=== PATIENT | female | born 2000 | race Hispanic/Latino ===

== ENCOUNTER 2018-03-23 17:27 | Emergency (ER) | payer BC, OTHER ==
--- NOTE | 2018-03-23 17:54 | EKG ---
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
--- NOTE | 2018-03-23 20:41 | ER ---
Nurse's Notes [facility] Name: Kathleen Saunders Age: 17 yrs Sex: Female : 2000 Arrival Date: 03/23/2018 Time: 17:31 Bed 30 Private MD: Diagnosis: Chest wall pain Presentation: 03/23 17:37 Presenting complaint: Patient states: i have chest pain that started an hour, feels hj like pressure; no radiating pain; denies SOB;. Transition of care: patient was not received from another setting of care. Onset of symptoms was March 23, 2018. Initial Sepsis Screen: Does the patient meet any 2 criteria? No. Patient's initial sepsis screen is negative. Does the patient have a suspected source of infection? No. Patient's initial sepsis screen is negative. Care prior to arrival: None. 17:37 Method Of Arrival: Ambulatory 17:37 Acuity: RASHARD 3 hj Triage Assessment: 17:38 General: Appears in no apparent distress. uncomfortable, Behavior is calm, cooperative, hj appropriate for age. Pain: Complains of pain in chest Pain currently is 8 out of 10 on a pain scale. Cardiovascular: Capillary refill < 3 seconds Patient's skin is warm and dry. 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 - Social history:: Smoking status: Patient/guardian denies using tobacco, never smoked. Screenin:00 Abuse screen: Denies threats or abuse. Nutritional screening: No deficits noted. tl3 Tuberculosis screening: No symptoms or risk factors identified. Fall Risk None identified. Assessment: 17:40 Pain: Pain does not radiate. Pain began 4 hours ago. hj 18:00 General: Appears in no apparent distress. comfortable, well groomed, well developed, tl3 well nourished. 18:00 Pain: Pain does not radiate. Pain began 4 hours ago. Neuro: Level of Consciousness is tl3 awake, alert, obeys commands. Cardiovascular: Heart tones S1 S2 present. Respiratory: Airway is patent Trachea midline Respiratory effort is even, unlabored, Respiratory pattern is regular, symmetrical. GI: No signs and/or symptoms were reported involving the gastrointestinal system. : No signs and/or symptoms were reported regarding the genitourinary system. EENT: No signs and/or symptoms were reported regarding the EENT system. Derm: No signs and/or symptoms reported regarding the dermatologic system. Musculoskeletal: No signs and/or symptoms reported regarding the musculoskeletal system. 18:00 Reassessment: pt has reproducible pain to mid chest area, helped her sister pack and tl3 move yesterday. 18:00 Reassessment: Patient appears in no apparent distress at this time. No changes from tl3 previously documented assessment. Patient and/or family updated on plan of care and expected duration. Pain level reassessed. Patient is alert, oriented x 3, equal unlabored respirations, skin warm/dry/pink. 20:29 Reassessment: Patient appears in no apparent distress at this time. No changes from tl3 previously documented assessment. Patient and/or family updated on plan of care and expected duration. Pain level reassessed. Patient is alert, oriented x 3, equal unlabored respirations, skin warm/dry/pink. 21:12 Reassessment: Patient appears in no apparent distress at this time. No changes from tl3 previously documented assessment. Patient and/or family updated on plan of care and expected duration. Pain level reassessed. Patient is alert, oriented x 3, equal unlabored respirations, skin warm/dry/pink. Vital Signs: 17:38 BP 122 / 77; Pulse 100; Resp 18; Temp 99.2(TE); Pulse Ox 100% on R/A; Weight 92.99 kg; Height 5 ft. 3 in. (160.02 cm); Pain 6/10; 18:00 BP 124 / 92; Pulse 93; Resp 18; Pulse Ox 100% ; tl3 21:12 BP 113 / 66; Pulse 85; Resp 18; Pulse Ox 100% on R/A; tl3 17:38 Body Mass Index 36.32 (92.99 kg, 160.02 cm) ED Course: 17:31 Patient arrived in ED. mr 17:38 Triage completed. hj 17:38 Arm band placed on right wrist. 17:40 court recording monitor on. Pulse ox on. NIBP on. hj 17:40 Patient maintains SpO2 saturation greater than 95% on room air. hj 18:00 Patient has correct armband on for positive identification. Bed in low position. Call tl3 light in reach. Side rails up X 1. Adult w/ patient. 18:00 No provider procedures requiring assistance completed. Patient did not have IV access tl3 during this emergency room visit. 18:33 Erick Cerrato PA is PHCP. jr8 18:33 Usman Cherry MD is Attending Physician. jr8 19:16 Shaina Pulido, RN is Primary Nurse. tl3 19:32 Patient moved to radiology via wheelchair. kc2 19:42 X-ray completed. Patient tolerated procedure well. Patient moved back from radiology. kc2 19:46 XRAY Chest Pa And Lat (2 Views) In Process Unspecified. EDMS Administered Medications: No medications were administered Outcome: 20:41 Discharge ordered by . jr8 21:12 Discharged to home ambulatory. tl3 21:12 Condition: good 21:12 Discharge instructions given to patient, Instructed on discharge instructions, follow up and referral plans. medication usage, Demonstrated understanding of instructions, follow-up care, medications, Prescriptions given X 1. 21:14 Patient left the ED. tl3 Signatures: Dispatcher [employer] EDMS Alexis Annie mr Erick Cerrato PA PA jr8 Trung Tompkins, RN RN Saima Cardoza [facility] Shaina Pulido, RN RN tl3 Corrections: (The following items were deleted from the chart) 17:41 17:38 Pulse 100bpm; Resp 18bpm; Pulse Ox 100% RA; Temp 99.2F Temporal; 92.99 kg; Height 5 ft. 3 in.; BMI: 36.3; Pain 6/10; hj 20:29 20:27 Reassessment: pt has reproducible pain to mid chest area, helped her sister pack tl3 and move yesterday tl3
--- NOTE | 2018-03-23 20:41 | EDPHYS ---
Physician Documentation [facility] Name: Kathleen Saunders Age: 17 yrs Sex: Female : 2000 Arrival Date: 03/23/2018 Time: 17:31 Bed 30 Private MD: ED Physician Usman Cherry HPI: 03/23 19:01 This 17 yrs old Female presents to ER via Ambulatory with complaints of Chest jr8 Pain. 19:01 The patient or guardian reports chest pain that is located primarily in the substernal jr8 area. The pain does not radiate. Associated signs and symptoms: The patient has no apparent associated signs or symptoms. The chest pain is described as sharp. Duration: The patient or guardian reports multiple episodes. Modifying factors: The symptoms are alleviated by nothing. the symptoms are aggravated by cough, deep breath, movement. Severity of pain: At its worst the pain was mild in the emergency department the pain is unchanged. The patient has not experienced similar symptoms in the past. The patient has not recently seen a physician. Stated that she helped her sister move yesterday. Today while at rest had upper sternal pain. Pain with cough, breath, and movement. Denies fevers or radiation of pain . 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 - Social history:: Smoking status: Patient/guardian denies using tobacco, never smoked. ROS: 19:01 Eyes: Negative for injury, pain, redness, and discharge, ENT: Negative for injury, jr8 pain, and discharge, Neck: Negative for injury, pain, and swelling, Respiratory: Negative for shortness of breath, cough, wheezing, and pleuritic chest pain, Abdomen/GI: Negative for abdominal pain, nausea, vomiting, diarrhea, and constipation, Back: Negative for injury and pain, MS/Extremity: Negative for injury and deformity, Skin: Negative for injury, rash, and discoloration, Neuro: Negative for headache, weakness, numbness, tingling, and seizure. 19:01 Cardiovascular: Positive for chest pain, with cough, with movement, Negative for edema, orthopnea, palpitations, paroxysmal nocturnal dyspnea. Exam: 19:01 Cardiovascular: Regular rate and rhythm with a normal S1 and S2. No gallops, murmurs, jr8 or rubs. Normal PMI, no JVD. No pulse deficits. Respiratory: Lungs have equal breath sounds bilaterally, clear to auscultation and percussion. No rales, rhonchi or wheezes noted. No increased work of breathing, no retractions or nasal flaring. Abdomen/GI: Soft, non-tender, with normal bowel sounds. No distension or tympany. No guarding or rebound. No evidence of tenderness throughout. Back: No spinal tenderness. No costovertebral tenderness. Full range of motion. Skin: Warm, dry with normal turgor. Normal color with no rashes, no lesions, and no evidence of cellulitis. MS/ Extremity: Pulses equal, no cyanosis. Neurovascular intact. Full, normal range of motion. Neuro: Awake and alert, GCS 15, oriented to person, place, time, and situation. Cranial nerves II-XII grossly intact. Motor strength 5/5 in all extremities. Sensory grossly intact. Cerebellar exam normal. Normal gait. 19:01 Chest/axilla: Inspection: normal, Palpation: tenderness, that is mild, of the anterior aspect of right upper chest, anterior aspect of left upper chest and mid-sternal area. Vital Signs: 17:38 BP 122 / 77; Pulse 100; Resp 18; Temp 99.2(TE); Pulse Ox 100% on R/A; Weight 92.99 kg; hj Height 5 ft. 3 in. (160.02 cm); Pain 6/10; 18:00 BP 124 / 92; Pulse 93; Resp 18; Pulse Ox 100% ; tl3 21:12 BP 113 / 66; Pulse 85; Resp 18; Pulse Ox 100% on R/A; tl3 17:38 Body Mass Index 36.32 (92.99 kg, 160.02 cm) hj MDM: 18:33 Patient medically screened. jr8 20:40 Data reviewed: vital signs, nurses notes, EKG, radiologic studies, plain films, and as jr8 a result, I will discharge patient. Data interpreted: Pulse oximetry: on room air is 100 %. Interpretation: normal. Counseling: I had a detailed discussion with the patient and/or guardian regarding: the historical points, exam findings, and any diagnostic results supporting the discharge/admit diagnosis, radiology results, the need for outpatient follow up, a family practitioner, to return to the emergency department if symptoms worsen or persist or if there are any questions or concerns that arise at home. 03/23 18:47 Order name: XRAY Chest Pa And Lat (2 Views); Complete Time: 22:30 jr8 03/23 17:42 Order name: EKG; Complete Time: 17:42 mario Administered Medications: No medications were administered Disposition: 03/24 19:52 Co-signature as Attending Physician, Usman Cherry MD. miriam Disposition: 03/23/18 20:41 Discharged to Home. Impression: Chest wall pain. - Condition is Stable. - Discharge Instructions: Chest Wall Pain, Costochondritis. - Prescriptions for Ibuprofen 800 mg Oral Tablet - take 1 tablet by ORAL route every 12 hours As needed take with food; 20 tablet. - Medication Reconciliation Form, Thank You Letter, Antibiotic Education, Prescription Opioid Use form. - Follow up: Private Physician; When: 2 - 3 days; Reason: Recheck today's complaints, Continuance of care, Re-evaluation by your physician. - Problem is new. - Symptoms have improved. Signatures: Dispatcher [employer] EDMS Erick Cerrato PA PA jr8 Trung Tompkins RN RN hj Starr, Gregory, MD MD Shaina Pulido, RN RN tl3 Corrections: (The following items were deleted from the chart) 03/23 21:14 20:41 03/23/2018 20:41 Discharged to Home. Impression: Chest wall pain. Condition is tl3 Stable. Forms are Medication Reconciliation Form, Thank You Letter, Antibiotic Education, Prescription Opioid Use. Follow up: Private Physician; When: 2 - 3 days; Reason: Recheck today's complaints, Continuance of care, Re-evaluation by your physician. Problem is new. Symptoms have improved. jr8
--- NOTE | 2018-03-23 21:07 | RAD REPORT ---
EXAM DESCRIPTION: RAD - Chest Pa And Lat (2 Views) - 03/23/2018 7:49 pm CLINICAL HISTORY: Chest pain COMPARISON: September 2015 TECHNIQUE: PA and lateral views of the chest were obtained. FINDINGS: The lungs are clear of failure, infiltrate or mass. Lung markings are prominent but not cl early different from the comparison. Heart size is normal and central vasculature is within normal limits. No pleural effusion or pneumothorax seen. No acute bony finding noted. No aortic abnormali ty. IMPRESSION: No acute cardiopulmonary process. Chest is similar to the September 2015 study.
[2018-03-23 22:21] VITALS: TEMP 99.2; O2SAT 100
[2018-03-23 22:23] VITALS: BP 113/66
== END 2018-03-23 21:14 | disposition home or self-care (01) ==
LOC: ER 17:27
DX: R07.89 Other chest pain (principal)
CPT/HCPCS: 71046; 93005; 99284

== ENCOUNTER 2025-09-03 00:05 | Emergency (ER) | payer BC, SELFPAY ==
--- OUTSIDE RECORDS SUMMARY | 2025-09-03 00:17 | XMS REPORT | Continuity of Care Document ---
Author Name Unknown Address [address] [facility] [address] [place] [address] [facility] [place] Address [address] [facility]. [address] [place] [address] Care Team Providers Care Senior Asic Engineer Name Role Phone Luz Contreras PA-C Primary Care Physician [phone] ELADIA BRASWELL Attending Clinician Unavailable ELADIA BRASWELL Attending Clinician Unavailable Nurse, [facility] Attending Clinician Unavailable Coty Cedillo MD Attending Clinician + [phone] Luz Contreras PA-C Attending Clinician [phone] Eladia Braswell MD Attending Clinician [phone] LUZ CONTRERAS Attending Clinician Unavailable Doctor Unassigned, [place] Attending Clinician U PARIS Mcghee Attending Clinician Unavailable Lab, Ang - Db Attending Clinician Unavailable Paris Fry Attending Clinician [phone] Nurse, [facility] Attending Clinician Un available RADAMES MORRIS Attending Clinician Unavailable RADAMES MORRIS Attending Clinician Unavailable Radames Morris MD Attending Clinician [phone] FIOR ANDERSON Attending Clinician Unavailable Nurse, [facility] Attending Clinician Unavailable Fior Anderson MD Attending Clinician [phone] Doctor Unassigned, [place] Attending Clinician U MARITZA Ledezma Attending Clinician Unavailable Nurse, [facility] Attending Clinician Un available PETER VICTOR Attending Clinician Unavailable Peter Parks Attending Clinician [phone] PENELOPE HINES Attending Clinician Unavailable Froylan Delgado MD Attending Clinician [phone] Penelope Hines MD Attending Clinician [phone] Maritza Gutierres Attending Clinician [phone], [facility] Attending Clinician Unavailable Pob, [facility] Main Attending Clinician Unavailjanell Velasco MD, Ganga Chen Attending Clinician [phone] Akira Garland CRNA Attending Clinician [phone] Ingrid Cruz NP Attending Clinician [phone] Ultrasound, [facility] Attending Clinician Unavaila Adia Cordero MD Attending Clinician + ADIA NARVAEZ Attending Clinician UnaSeema Akers MD Attending Clinician [phone] SEEMA MCGRAW Attending Clinician Unavailable SEEMA MCGRAW Attending Clinician Unavailable Marion Campos Attending Clinician [phone] RADAMES MORRIS Admitting Clinician Unavailable ELADIA BRASWELL Admitting Clinician Unavailable Eladia Braswell MD Admitting Clinician [phone] Fior Anderson MD Admitting Clinician [phone] FIOR ANDERSON Admitting Clinician Unavailable Payers Payer Name Policy Type Policy Number Effective Date Expirati on Date Source BC[employer] [facility] - OUT OF STATE [id number] 2024 00:00:00 [employer] [id number] 2024 00:00:00 [facility] [id number] 2016 00:00:00 2023 00:00:00 Problems Condition Name Condition Details Condition Category Status Onset Date Resolution Date Last Treatment Date Treating Clinician Comments Source Type 2 diabetes mellitus without complicati on, without long-term current use of insulin Type 2 diabetes mellitus without complicati on, without long-term current use of insulin Disease Active 4-17 00:00: 00 [facility] Chronic GERD Chronic GERD Disease Active 3-24 00:00: 00 [facility] Hyperchole sterolemia Hyperchole sterolemia Disease Active 3-24 00:00: 00 [facility] Depression with anxiety Depression with anxiety Disease Active 7-14 00:00: 00 [facility] Obesity (BMI 30-39.9) Obesity (BMI 30-39.9) Disease Active 6-02 00:00: 00 [facility] Anemia in , delivered, current hospitaliz ation Anemia in , delivered, current hospitaliz ation Disease Active 4-14 00:00: 00 [facility] 26 weeks gestation of 26 weeks gestation of Disease Active 1-17 00:00: 00 [facility] Pre-diabet es Pre-diabet es Disease Resolve d 3-24 00:00: 00 2025-03-03 00:00:00 2025-03-03 14:33:56 [facility] Anemia in , delivered, current hospitaliz ation Anemia in , delivered, current hospitaliz ation Disease Resolve d 4-14 00:00: 00 2023-04-18 00:00:00 2023-04-18 11:06:13 [facility] Diet controlled gestationa l diabetes mellitus (GDM) in third trimester Diet controlled gestationa l diabetes mellitus (GDM) in third trimester Disease Resolve d 4-12 00:00: 00 2023-04-18 00:00:00 2023-04-18 11:06:12 [facility] Encounter for induction of labor Encounter for induction of labor Disease Resolve d 4-12 00:00: 00 2023-04-18 00:00:00 2023-04-18 11:06:02 [facility] Morbid obesity with body mass index of 40.0-49.9 Morbid obesity with body mass index of 40.0-49.9 Disease Resolve d 2023-0 3-15 00:00: 00 2023-04-18 00:00:00 2023-04-18 11:06:04 [facility] Diet controlled gestationa l diabetes mellitus (GDM), antepartum Diet controlled gestationa l diabetes mellitus (GDM), antepartum Disease Resolve d 2022-0 2-01 00:00: 00 2023-04-18 00:00:00 2023-04-18 11:06:10 [facility] 39 weeks gestation of 39 weeks gestation of Disease Resolve d 2022-0 1-17 00:00: 00 2023-04-18 00:00:00 2023-04-18 11:06:13 [facility] Supervisio n of high-risk with insufficie nt care in second trimester Supervisio n of high-risk with insufficie nt care in second trimester Disease Resolve d 2022-0 1-17 00:00: 00 2023-04-18 00:00:00 2023-04-18 11:06:07 [facility] Obesity affecting in second trimester Obesity affecting in second trimester Disease Resolve d 2022-0 1-17 00:00: 00 2023-04-18 00:00:00 2023-04-18 11:06:06 [facility] Liveborn infant, of schultz , born in hospital by vaginal delivery Liveborn , of schultz , born in hospital by vaginal delivery Disease Resolve d 2022-0 4-13 00:00: 00 2023-03-19 00:00:00 2023-03-19 15:32:38 [facility] Allergies, Adverse Reactions, Alerts Allergy Name Allergy Type Status Severity Reaction(s) Onset Date Inactive Date Treating Clinician Comments Source NO KNOWN ALLERGIE S Drug Class Active [facility] Social History Social Habit Start Date Stop Date Quantity Comments Source ASSERTION 2022-06-12 00:00:00 Not [facility] Gender identity [facility] Alcoholic beverage intake 2025-08-18 00:00:00 2025-08-18 00:00:00 Ex-drinker (finding) [facility] History of Social function 2025-04-28 00:00:00 2025-04-28 00:00:00 [facility] Alcohol intake 2024-01-02 00:00:00 2024-01-02 00:00:00 Ex-drinker (finding) [facility] Exposure to SARS-CoV-2 (event) 2023-05-06 00:00:00 2023-05-16 09:53:00 Not sure [facility] Tobacco use and exposure 2022-12-03 00:00:00 2022-12-03 00:00:00 Smokeless tobacco non-user [facility] Sex assigned at 2000 00:00:00 2000 00:00:00 [facility] Smoking Status Start Date Stop Date Source Tobacco smoking consumption unknown [facility] Never smoked tobacco [facility] Medications Ordered Medication Name Filled Medication Name Start Date Stop Date Current Medication? Ordering Clinician Indication Dosage Frequency Signature (SIG) Comments Components Source medroxyPROG ESTERone (DEPO-PROVE RA) syringe 150 mg 2024-11 16:00: 00 08-18 15:05 :00 No [id number] 150mg 150 mg, Intramuscu lar, ONCE, 1 dose, On Gabriela 08/18/25 at 1100, Routine [facility] medroxyPROG ESTERone (DEPO-PROVE RA) syringe 150 mg 05-26 16:30: 00 05-26 15:50 :00 No [id number] 150mg 150 mg, Intramuscu lar, ONCE, 1 dose, On Gabriela 05/26/25 at 1130, Routine [facility] metformin ER 500 mg 24 hr tablet 04-29 00:00: 00 Yes [id number] 500mg Take 1 tablet by mouth daily with breakfast. [facility] orlistat 120 mg capsule 04-28 00:00: 00 Yes [id number] 104 120mg Take 1 capsule by mouth in the morning and 1 capsule at noon and 1 capsule in the evening. Take with meals. [facility] omeprazole 20 mg capsule 04-28 00:00: 00 Yes [id number] 20mg Take 1 capsule by mouth in the morning. [facility] azithromyci n 500 mg tablet 18 00:00: 00 04-06 00:00 :00 No [id number] 1000mg Take 2 tablets by mouth in the morning. [facility] medroxyPROG ESTERone (DEPO-PROVE RA) syringe 150 mg 03-03 20:45: 00 03-03 19:46 :00 No [id number] 150mg 150 mg, Intramuscu lar, ONCE, 1 dose, On Fri03/03/25 at 1545, Routine [facility] metFORMIN 500 mg tablet 02-10 00:00: 00 04-29 00:00 :00 No [id number] 500mg Take 1 tablet by mouth in the morning and 1 tablet in the evening. Take with meals. [facility] omeprazole 20 mg capsule 02-08 00:00: 00 04-28 00:00 :00 No TAKE ONE (1) CAPSULE(S) BY MOUTH ONCE A DAY IN THE MORNING. [facility] SERTraline (ZOLOFT) 50 mg tablet 3-24 00:00: 00 04-28 00:00 :00 No [id number] 50mg Take 1 tablet by mouth at bedtime. [facility] traZODone 50 mg tablet 3-24 00:00: 00 04-28 00:00 :00 No [id number] 50mg Take 1 tablet by mouth at bedtime as needed for Insomnia. [facility] omeprazole (PRILOSEC OTC) 20 mg tablet 3-24 00:00: 00 04-28 00:00 :00 No [id number] 20mg Take 1 tablet by mouth in the morning. [facility] medroxyPROG ESTERone (DEPO-PROVE RA) syringe 150 mg -17 17:00: 00 12-03 16:24 :00 No [id number] 150mg 150 mg, Intramuscu lar, ONCE, 1 dose, On Fri12/03/24 at 1100, Routine [facility] iopamidol (ISOVUE 370-500 mL) injection 80 mL 2023-11 07:30: 00 09-29 07:30 :00 No [id number] 80mL 80 mL, Intravenou s, ONCE, 1 dose, On Fri09/29/24 at 0130, Routine [facility] ketorolac (TORADOL) injection 30 mg 2023-11 06:30: 00 09-29 05:35 :00 No 30mg 30 mg, Slow IV Push, ONCE, 1 dose, On Fri09/29/24 at 0030, Routine [facility] ondansetron (ZOFRAN (PF)) injection 4 mg 2023-11 05:45: 00 09-29 05:36 :00 No 4mg 4 mg, Slow IV Push, ONCE, 1 dose, On Fri09/28/24 at 2345, Administer over 2-5 Minutes, 2 mL [facility] tablet 2023-11 00:00: 00 02-07 00:00 :00 No [id number] 10mg Take 1 tablet by mouth every 6 (six) hours as needed for Pain (scale 7-10). [facility] ondansetron (ZOFRAN) 4 mg tablet 2023-11 00:00: 00 02-07 00:00 :00 No [id number] 4mg Take 1 tablet by mouth every 8 (eight) hours as needed for Nausea and Vomiting (N/V). [facility] medroxyPROG ESTERone (DEPO-PROVE RA) syringe 150 mg 2023-11 22:45: 00 09-10 21:56 :00 No [id number] 150mg 150 mg, Intramuscu lar, ONCE, 1 dose, On Fri09/10/24 at 1745, Routine [facility] medroxyPROG ESTERone (DEPO-PROVE RA) syringe 150 mg 06-21 20:15: 00 06-21 19:24 :00 No [id number] 150mg 150 mg, Intramuscu lar, ONCE, 1 dose, On Fri06/21/24 at 1515, Routine [facility] medroxyPROG ESTERone (DEPO-PROVE RA) injection 150 mg 03-26 16:45: 00 03-26 15:47 :00 No [id number] 150mg 150 mg, Intramuscu lar, ONCE, 1 dose, On Fri03/26/24 at 1145, Routine [facility] phentermine 37.5 mg tablet 03-16 00:00: 00 03-26 00:00 :00 No 37.5mg Take 1 tablet by mouth in the morning. [facility] medroxyPROG ESTERone (DEPO-PROVE RA) injection 150 mg -16 19:30: 00 01-02 19:22 :00 No [id number] [facility] PNV no.95/desiree us fum/folic ac ( ORAL) -16 13:17: 12 02-07 00:00 :00 No Take by mouth. [facility] semaglutide (OZEMPIC) 0.25 mg or 0.5 mg(2 mg/1.5 mL) PnIj -16 13:17: 12 02-07 00:00 :00 No inject under the skin. [facility] phentermine 37.5 mg capsule -16 13:17: 12 02-07 00:00 :00 No 37.5mg Take 1 capsule by mouth every morning. [facility] medroxyPROG ESTERone (DEPO-PROVE RA) syringe 150 mg 2022-11-15 17:15: 00 10-01 16:15 :00 No [id number] [facility] amox[facility] -clavulanat e (AUGMENTIN) 875-125 mg per tablet 1 tablet 08-10 04:29: 00 08-10 04:33 :00 No 1{tbl} 1 tablet, Oral, ONCE, 1 dose, On 08/09/23 at 2330, SOTERO
Re ason for Anti-Infec tive: Documented Infection< br>Documen huy Infection Site: HEENT
D uration of Therapy: Other (see Comments) [facility] acetaminoph en (TYLENOL) tablet 650 mg 08-10 03:30: 00 08-10 03:34 :00 No 650mg 650 mg, Oral, ONCE, 1 dose, On 08/09/23 at 2230, SOTERO [facility] ketorolac (TORADOL) injection 30 mg 08-10 03:30: 00 08-10 03:34 :00 No 30mg 30 mg, Intramuscu lar, ONCE, 1 dose, On 08/09/23 at 2230, SOTERO [facility] amoxicillin -clavulanat e 875-125 mg per tablet 08-09 00:00: 00 08-20 04:59 :00 No [id number] 1{tbl} Take 1 tablet by mouth in the morning and 1 tablet in the evening. Do all this for 10 days. [facility] cetirizine 10 mg tablet 08-09 00:00: 00 08-20 04:59 :00 No [id number] 10mg Take 1 tablet by mouth in the morning for 10 days. [facility] TRIAMCINOLO NE ACETONIDE-H YDROQUINONE -TRETINOIN 0.025-6-0.0 5 % TOPICAL CREAM 07-30 00:00: 00 02-07 00:00 :00 No [id number] Apply to area(s) at bedtime. [facility] FLUoxetine 20 mg tablet 07-15 00:00: 00 02-07 00:00 :00 No [id number] 20mg Take 1 tablet by mouth in the morning. [facility] medroxyPROG ESTERone (DEPO-PROVE RA) syringe 150 mg 07-11 18:30: 00 07-11 17:34 :00 No [id number] 150mg [facility] medroxyPROG ESTERone (DEPO-PROVE RA) syringe 150 mg 04-18 17:45: 00 04-18 16:49 :00 No [id number] 150mg [facility] FLUoxetine 10 mg capsule 04-18 00:00: 00 07-15 00:00 :00 No [id number] 10mg Take 1 capsule by mouth in the morning. [facility] PNV no.95/desiree us fum/folic ac ( ORAL) 03-19 15:33: 58 Yes Take by mouth. [facility] PNV no.95/desiree us fum/folic ac ( ORAL) 02-28 22:45: 22 Yes Take by mouth. [facility] vitamin w/FA tablet 02-28 00:00: 00 03-19 00:00 :00 No [id number] 102 1{tbl} Take 1 tablet by mouth in the morning. [facility] ibuprofen 600 mg tablet 02-28 00:00: 00 03-19 00:00 :00 No [id number] 102 600mg Take 1 tablet by mouth every 6 (six) hours as needed (Pain). Take with food or milk. [facility] HYDROcodone -acetaminop hen (NORCO 5) 5-325 mg tablet 1 tablet 02-27 23:49: 21 Yes 1{tbl} 1 tablet, Oral, Q6HPRN, Starting on Fri02/27/23 at 1849, Until Discontinu ed, Routine, Pain (scale 7-10) [facility] ibuprofen (IBU) tablet 600 mg 02-27 23:49: 21 Yes 600mg 600 mg, Oral, Q6HPRN, Starting on Fri02/27/23 at 1849, Until Discontinu ed, Routine, Pain (scale 4-6) [facility] acetaminoph en (TYLENOL) tablet 650 mg 02-27 23:49: 21 Yes 650mg 650 mg, Oral, Q6HPRN, Starting on Fri02/27/23 at 184, Until Discontinu ed, Routine, Pain (scale 1-3) [facility] diphenhydrA MINE (BENADRYL) tablet 25 mg 02-27 23:49: 21 Yes 25mg 25 mg, Oral, Q6HPRN, Starting on Fri02/27/23 at 184, Until Discontinu ed, Routine, Sleep, Itching [facility] ondansetron (ZOFRAN (PF)) injection 4 mg 02-27 23:49: 21 Yes 4mg 4 mg, Slow IV Push, Q8HPRN, Starting on Fri02/27/23 at 1848, Until Discontinu ed, Routine, Nausea and Vomiting (N/V) [facility] simethicone (GAS RELIEF (SIMETHICON E)) chewable tablet 160 mg 02-27 23:49: 21 Yes 160mg 160 mg, Oral, PC+HSPRN, Starting on Fri02/27/23 at 184, Until Discontinu ed, Routine, Gas [facility] docusate (COLACE) capsule 200 mg 02-27 23:49: 21 Yes 200mg 200 mg, Oral, QDAILYPRN, Starting on Fri02/27/23 at 184, Until Discontinu ed, Routine, Constipati on [facility] magnesium hydroxide (MILK OF MAGNESIA) 400 mg/5 mL suspension 30 mL 02-27 23:49: 21 Yes 30mL 30 mL, Oral, QDAILYPRN, Starting on Fri02/27/23 at 184, Until Discontinu ed, Routine, Constipati on [facility] benzocaine- menthol (DERMOPLAST ) 20-0.5 % topical spray 02-27 23:49: 20 Yes Topical, PRN, Starting on Fri02/27/23 at 184, Until Discontinu ed, Routine, Perineum discomfort [facility] PIB fentaNYL-ro pivacaine 2 mcg/mL-0.1 % (PF) in NS 200 mL epidural infusion RTU 02-27 15:36: 00 02-28 00:18 :58 No Epidural, ONCE INTRA PROCEDURE, Starting on Gabriela 02/27/23 at 1036, Until Gabriela 02/27/23 at 1918, Routine, Intra-op [facility] lidocaine-e pinephrine (XYLOCAINE W/EPINEPHRI NE) 1.5 %-1:200,000 injection 02-27 15:35: 00 02-28 00:18 :58 No Epidural, ONCE INTRA PROCEDURE, Starting on Gabriela 02/27/23 at 1035, Until Gabriela 02/27/23 at 1918, Routine, Intra-op [facility] lidocaine 1% (XYLOCAINE) 100 mg/10 mL (1 %) injection 02-27 15:32: 00 02-28 00:18 :58 No Infiltrati on, ONCE INTRA PROCEDURE, Starting on Gabriela 02/27/23 at 1032, Until Gabriela 02/27/23 at 191, Routine, Intra-op [facility] PNV no.95/desiree us fum/folic ac ( ORAL) 02-27 10:49: 21 Yes Take by mouth. [facility] lactated ringers IV infusion 1,000 mL 02-26 23:15: 00 02-27 23:50 :32 No 1000mL at 125 mL/hr, 1,000 mL, IV Infusion, CONTINUOUS , Starting on Fri02/26/23 at 1815, Until Fri02/27/23 at 1850, Routine [facility] misoprostol (CYTOTEC) quarter-tab let 25 mcg 02-26 22:15: 00 02-26 21:51 :00 No 25ug 25 mcg, Oral, ONCE, 1 dose, On Fri02/26/23 at 1715, Routine [facility] oxytocin (PITOCIN) 30 units in NS 500 mL IV infusion 02-26 22:00: 22 02-27 23:50 :32 No 2mU/min at 2-40 mL/hr, IV Infusion, TITRATE, Starting on Fri02/26/23 at 1700, Until Gabriela 02/27/23 at 1850, SOTERO [facility] misoprostol (CYTOTEC) quarter-tab let 25 mcg 02-26 21:18: 57 02-27 23:50 :32 No 25ug 25 mcg, Vaginal, Q4HPRN, Starting on Fri02/26/23 at 1618, Until Gabriela 02/27/23 at 1850, Routine, cervical ripening [facility] butorphanol (STADOL) injection 2 mg 02-26 21:18: 57 02-27 14:11 :00 No 2mg 2 mg, IV Push, Q3HPRN, 3 doses, Starting on Fri02/26/23 at 1618, Until Discontinu ed, Routine, Pain [facility] lactated ringers IV infusion 500 mL 02-26 21:18: 56 02-27 23:50 :32 No 500mL at 999 mL/hr, 500 mL, IV Infusion, PRN - SEE INSTRUCTIO NS, Starting on Fri02/26/23 at 1618, Until Gabriela 02/27/23 at 1850, Routine [facility] PNV no.95/desiree us fum/folic ac ( ORAL) 02-20 08:24: 02 Yes Take by mouth. [facility] metroNIDAZO LE (FLAGYL) tablet 500 mg 02-20 04:45: 00 02-20 03:57 :00 No 500mg 500 mg, Oral, ONCE, 1 dose, On Fri02/19/23 at 2345, Routine
Reason for Anti-Infec tive: Documented Infection< br>Documen huy Infection Site: Other
O ther site: vaginal
Duration of Therapy: 7 days [facility] metroNIDAZO LE 500 mg tablet 02-20 00:00: 00 03-19 00:00 :00 No [id number] 500mg Take 1 tablet by mouth every 12 (twelve) hours. [facility] PNV no.95/desiree us fum/folic ac ( ORAL) 02-19 23:22: 19 Yes Take by mouth. [facility] blood sugar diagnostic (ACCU-CHEK GUIDE TEST STRIPS) strip 4- 00:00: 00 02-28 00:00 :00 No Pt to check glucose levels 4 x per day. [facility] ferrous sulfate (IRON, FERROUS SULFATE,) 325 mg (65 mg iron) tablet 02-06 00:00: 00 02-07 00:00 :00 No [id number] 325mg Take 1 tablet by mouth in the morning. [facility] ascorbic acid, vitamin C, 500 mg tablet 02-06 00:00: 00 03-19 00:00 :00 No [id number] 500mg Take 1 tablet by mouth in the morning. [facility] PNV no.95/desiree us fum/folic ac ( ORAL) 3 13:38: 04 Yes Take by mouth. [facility] lancets 33 gauge [place] 3 00:00: 00 02-28 00:00 :00 No Pt to check glucose levels 4 x per day. [facility] blood sugar diagnostic (ACCU-CHEK GUIDE TEST STRIPS) strip 3 00:00: 00 02-14 00:00 :00 No Pt to check glucose levels 4 x per day. [facility] PNV no.95/desiree us fum/folic ac ( ORAL) 2-08 13:01: 11 Yes Take by mouth. [facility] PNV no.95/desiree us fum/folic ac ( ORAL) 2- 09:35: 01 Yes Take by mouth. [facility] Blood-Gluco se Meter (ACCU-CHEK GUIDE GLUCOSE METER) [place] 1- 00:00: 00 02-28 00:00 :00 No Use as directed [facility] ACCU-CHEK SOFTCLIX LANCETS [place] 1- 00:00: 00 02-28 00:00 :00 No USE 1 TO CHECK GLUCOSE 4 TIMES DAILY [facility] Blood-Gluco se Meter (ACCU-CHEK GUIDE GLUCOSE METER) [place] 12-09 00:00: 00 02-28 00:00 :00 No Use as directed [facility] ACCU-CHEK SOFTCLIX LANCETS [place] 12-09 00:00: 00 02-28 00:00 :00 No USE 1 TO CHECK GLUCOSE 4 TIMES DAILY [facility] blood sugar diagnostic (ACCU-CHEK GUIDE TEST STRIPS) strip 12-09 00:00: 00 01-19 00:00 :00 No Pt to check glucose levels 4 x per day. [facility] lancets 33 gauge [place] 12-09 00:00: 00 01-19 00:00 :00 No Pt to check glucose levels 4 x per day. [facility] metroNIDAZO LE (FLAGYL) tablet 500 mg 12-03 00:24: 00 12-03 00:42 :00 No 500mg 500 mg, Oral, ONCE, 1 dose, On Fri12/02/22 at 1830, Routine
Reason for Anti-Infec tive: Documented Infection< br>Documen huy Infection Site: Other
O ther site: vaginal
Duration of Therapy: Other (see Comments) [facility] metroNIDAZO LE (FLAGYL) 500 mg tablet 12-02 00:00: 00 12-25 00:00 :00 No [id number] 500mg Take 1 tablet by mouth every 12 (twelve) hours. [facility] Immunizations Ordered Immunization Name Filled Immunization Name Date Status Comments Source TDAP 2023-01-15 00:00:00 Completed [facility] TDAP 2023-01-15 00:00:00 Completed [facility] TDAP 2023-01-15 00:00:00 Completed [facility] TDAP 2023-01-15 00:00:00 Completed [facility] TDAP 2023-01-15 00:00:00 Completed [facility] TDAP 2023-01-15 00:00:00 Completed [facility] TDAP 2023-01-15 00:00:00 Completed [facility] TDAP 2023-01-15 00:00:00 Completed [facility] TDAP 2023-01-15 00:00:00 Completed [facility] TDAP 2023-01-15 00:00:00 Completed [facility] TDAP 2023-01-15 00:00:00 Completed [facility] TDAP 2023-01-15 00:00:00 Completed [facility] TDAP 2023-01-15 00:00:00 Completed [facility] TDAP 2023-01-15 00:00:00 Completed [facility] TDAP 2023-01-15 00:00:00 Completed [facility] TDAP 2023-01-15 00:00:00 Completed [facility] TDAP 2023-01-15 00:00:00 Completed [facility] TDAP 2023-01-15 00:00:00 Completed [facility] TDAP 2023-01-15 00:00:00 Completed [facility] TDAP 2023-01-15 00:00:00 Completed [facility] TDAP 2023-01-15 00:00:00 Completed [facility] TDAP 2023-01-15 00:00:00 Completed [facility] TDAP 2023-01-15 00:00:00 Completed [facility] TDAP 2023-01-15 00:00:00 Completed [facility] TDAP 2023-01-15 00:00:00 Completed [facility] TDAP 2023-01-15 00:00:00 Completed [facility] TDAP 2023-01-15 00:00:00 Completed [facility] TDAP 2023-01-15 00:00:00 Completed [facility] TDAP 2023-01-15 00:00:00 Completed [facility] TDAP 2023-01-15 00:00:00 Completed [facility] TDAP 2023-01-15 00:00:00 Completed [facility] TDAP 2023-01-15 00:00:00 Completed [facility] TDAP 2023-01-15 00:00:00 Completed [facility] SARS-COV-2 COVID-19 PFIZER VACCINE 2021-05-11 00:00:00 Completed [facility] SARS-COV-2 COVID-19 PFIZER VACCINE 2021-05-11 00:00:00 Completed SARS-COV-2 COVID-19 PFIZER VACCINE 2021-05-11 00:00:00 Completed [facility] SARS-COV-2 COVID-19 PFIZER VACCINE 2021-05-11 00:00:00 Completed [facility] SARS-COV-2 COVID-19 PFIZER VACCINE 2021-05-11 00:00:00 Completed [facility] SARS-COV-2 COVID-19 PFIZER VACCINE 2021-05-11 00:00:00 Completed [facility] SARS-COV-2 COVID-19 PFIZER VACCINE 2021-05-11 00:00:00 Completed [facility] SARS-COV-2 COVID-19 PFIZER VACCINE 2021-05-11 00:00:00 Completed [facility] SARS-COV-2 COVID-19 PFIZER VACCINE 2021-05-11 00:00:00 Completed [facility] SARS-COV-2 COVID-19 PFIZER VACCINE 2021-05-11 00:00:00 Completed [facility] SARS-COV-2 COVID-19 PFIZER VACCINE 2021-05-11 00:00:00 Completed [facility] SARS-COV-2 COVID-19 PFIZER VACCINE 2021-05-11 00:00:00 Completed [facility] SARS-COV-2 COVID-19 PFIZER VACCINE 2021-05-11 00:00:00 Completed [facility] SARS-COV-2 COVID-19 PFIZER VACCINE 2021-05-11 00:00:00 Completed [facility] SARS-COV-2 COVID-19 PFIZER VACCINE 2021-05-11 00:00:00 Completed [facility] SARS-COV-2 COVID-19 PFIZER VACCINE 2021-05-11 00:00:00 Completed [facility] SARS-COV-2 COVID-19 PFIZER VACCINE 2021-05-11 00:00:00 Completed [facility] SARS-COV-2 COVID-19 PFIZER VACCINE 2021-05-11 00:00:00 Completed [facility] SARS-COV-2 COVID-19 PFIZER VACCINE 2021-05-11 00:00:00 Completed [facility] SARS-COV-2 COVID-19 PFIZER VACCINE 2021-05-11 00:00:00 Completed [facility] SARS-COV-2 COVID-19 PFIZER VACCINE 2021-05-11 00:00:00 Completed [facility] SARS-COV-2 COVID-19 PFIZER VACCINE 2021-05-11 00:00:00 Completed [facility] SARS-COV-2 COVID-19 PFIZER VACCINE 2021-05-11 00:00:00 Completed [facility] SARS-COV-2 COVID-19 PFIZER VACCINE 2021-05-11 00:00:00 Completed [facility] SARS-COV-2 COVID-19 PFIZER VACCINE 2021-05-11 00:00:00 Completed [facility] SARS-COV-2 COVID-19 PFIZER VACCINE 2021-05-11 00:00:00 Completed [facility] SARS-COV-2 COVID-19 PFIZER VACCINE 2021-05-11 00:00:00 Completed [facility] SARS-COV-2 COVID-19 PFIZER VACCINE 2021-05-11 00:00:00 Completed [facility] SARS-COV-2 COVID-19 PFIZER VACCINE 2021-05-11 00:00:00 Completed [facility] SARS-COV-2 COVID-19 PFIZER VACCINE 2021-05-11 00:00:00 Completed [facility] SARS-COV-2 COVID-19 PFIZER VACCINE 2021-05-11 00:00:00 Completed [facility] SARS-COV-2 COVID-19 PFIZER VACCINE 2021-05-11 00:00:00 Completed [facility] SARS-COV-2 COVID-19 PFIZER VACCINE 2021-05-11 00:00:00 Completed [facility] SARS-COV-2 COVID-19 PFIZER VACCINE 2021-05-11 00:00:00 Completed [facility] SARS-COV-2 COVID-19 PFIZER VACCINE 2021-05-11 00:00:00 Completed [facility] SARS-COV-2 COVID-19 PFIZER VACCINE 2021-05-11 00:00:00 Completed [facility] SARS-COV-2 COVID-19 PFIZER VACCINE 2021-05-11 00:00:00 Completed [facility] SARS-COV-2 COVID-19 PFIZER VACCINE 2021-05-11 00:00:00 Completed [facility] SARS-COV-2 COVID-19 PFIZER VACCINE 2021-05-11 00:00:00 Completed [facility] SARS-COV-2 COVID-19 PFIZER VACCINE 2021-05-11 00:00:00 Completed [facility] SARS-COV-2 COVID-19 PFIZER VACCINE 2021-04-20 00:00:00 Completed [facility] SARS-COV-2 COVID-19 PFIZER VACCINE 2021-04-20 00:00:00 Completed [facility] SARS-COV-2 COVID-19 PFIZER VACCINE 2021-04-20 00:00:00 Completed [facility] SARS-COV-2 COVID-19 PFIZER VACCINE 2021-04-20 00:00:00 Completed [facility] SARS-COV-2 COVID-19 PFIZER VACCINE 2021-04-20 00:00:00 Completed [facility] SARS-COV-2 COVID-19 PFIZER VACCINE 2021-04-20 00:00:00 Completed [facility] SARS-COV-2 COVID-19 PFIZER VACCINE 2021-04-20 00:00:00 Completed [facility] SARS-COV-2 COVID-19 PFIZER VACCINE 2021-04-20 00:00:00 Completed [facility] SARS-COV-2 COVID-19 PFIZER VACCINE 2021-04-20 00:00:00 Completed [facility] SARS-COV-2 COVID-19 PFIZER VACCINE 2021-04-20 00:00:00 Completed [facility] SARS-COV-2 COVID-19 PFIZER VACCINE 2021-04-20 00:00:00 Completed [facility] SARS-COV-2 COVID-19 PFIZER VACCINE 2021-04-20 00:00:00 Completed [facility] SARS-COV-2 COVID-19 PFIZER VACCINE 2021-04-20 00:00:00 Completed [facility] SARS-COV-2 COVID-19 PFIZER VACCINE 2021-04-20 00:00:00 Completed [facility] SARS-COV-2 COVID-19 PFIZER VACCINE 2021-04-20 00:00:00 Completed [facility] SARS-COV-2 COVID-19 PFIZER VACCINE 2021-04-20 00:00:00 Completed [facility] SARS-COV-2 COVID-19 PFIZER VACCINE 2021-04-20 00:00:00 Completed [facility] SARS-COV-2 COVID-19 PFIZER VACCINE 2021-04-20 00:00:00 Completed [facility] SARS-COV-2 COVID-19 PFIZER VACCINE 2021-04-20 00:00:00 Completed [facility] SARS-COV-2 COVID-19 PFIZER VACCINE 2021-04-20 00:00:00 Completed [facility] SARS-COV-2 COVID-19 PFIZER VACCINE 2021-04-20 00:00:00 Completed [facility] SARS-COV-2 COVID-19 PFIZER VACCINE 2021-04-20 00:00:00 Completed [facility] SARS-COV-2 COVID-19 PFIZER VACCINE 2021-04-20 00:00:00 Completed [facility] SARS-COV-2 COVID-19 PFIZER VACCINE 2021-04-20 00:00:00 Completed [facility] SARS-COV-2 COVID-19 PFIZER VACCINE 2021-04-20 00:00:00 Completed [facility] SARS-COV-2 COVID-19 PFIZER VACCINE 2021-04-20 00:00:00 Completed [facility] SARS-COV-2 COVID-19 PFIZER VACCINE 2021-04-20 00:00:00 Completed [facility] SARS-COV-2 COVID-19 PFIZER VACCINE 2021-04-20 00:00:00 Completed [facility] SARS-COV-2 COVID-19 PFIZER VACCINE 2021-04-20 00:00:00 Completed [facility] SARS-COV-2 COVID-19 PFIZER VACCINE 2021-04-20 00:00:00 Completed [facility] SARS-COV-2 COVID-19 PFIZER VACCINE 2021-04-20 00:00:00 Completed [facility] SARS-COV-2 COVID-19 PFIZER VACCINE 2021-04-20 00:00:00 Completed [facility] SARS-COV-2 COVID-19 PFIZER VACCINE 2021-04-20 00:00:00 Completed [facility] SARS-COV-2 COVID-19 PFIZER VACCINE 2021-04-20 00:00:00 Completed [facility] SARS-COV-2 COVID-19 PFIZER VACCINE 2021-04-20 00:00:00 Completed [facility] SARS-COV-2 COVID-19 PFIZER VACCINE 2021-04-20 00:00:00 Completed [facility] SARS-COV-2 COVID-19 PFIZER VACCINE 2021-04-20 00:00:00 Completed [facility] SARS-COV-2 COVID-19 PFIZER VACCINE 2021-04-20 00:00:00 Completed [facility] SARS-COV-2 COVID-19 PFIZER VACCINE 2021-04-20 00:00:00 Completed [facility] SARS-COV-2 COVID-19 PFIZER VACCINE 2021-04-20 00:00:00 Completed [facility] SARS-COV-2 COVID-19 PFIZER VACCINE Unknown Completed [facility] TDAP Unknown Completed [facility] SARS-COV-2 COVID-19 PFIZER VACCINE Unknown Completed [facility] TDAP Unknown Completed [facility] SARS-COV-2 COVID-19 PFIZER VACCINE Unknown Completed [facility] TDAP Unknown Completed [facility] SARS-COV-2 COVID-19 PFIZER VACCINE Unknown Completed [facility] SARS-COV-2 COVID-19 PFIZER VACCINE Unknown Completed [facility] TDAP Unknown Completed [facility] SARS-COV-2 COVID-19 PFIZER VACCINE Unknown Completed [facility] TDAP Unknown Completed [facility] SARS-COV-2 COVID-19 PFIZER VACCINE Unknown Completed [facility] TDAP Unknown Completed [facility] SARS-COV-2 COVID-19 PFIZER VACCINE Unknown Completed [facility] TDAP Unknown Completed [facility] SARS-COV-2 COVID-19 PFIZER VACCINE Unknown Completed [facility] TDAP Unknown Completed [facility] SARS-COV-2 COVID-19 PFIZER VACCINE Unknown Completed [facility] TDAP Unknown Completed [facility] SARS-COV-2 COVID-19 PFIZER VACCINE Unknown Completed [facility] TDAP Unknown Completed [facility] SARS-COV-2 COVID-19 PFIZER VACCINE Unknown Completed [facility] TDAP Unknown Completed [facility] SARS-COV-2 COVID-19 PFIZER VACCINE Unknown Completed [facility] TDAP Unknown Completed [facility] Vital Signs Vital Name Observation Time Observation Value Comments S ource Systolic blood pressure 2025-08-18 15:03:00 121 mm[Hg] [facility] Diastolic blood pressure 2025-08-18 15:03:00 83 mm[Hg] [facility] Heart rate 2025-08-18 15:03:00 91 /min [facility] Respiratory rate 2025-08-18 15:03:00 18 /min [facility] Body height 2025-08-18 15:03:00 162.6 cm [facility] Body weight 2025-08-18 15:03:00 107.049 kg [facility] BMI 2025-08-18 15:03:00 40.51 kg/m2 [facility] Systolic blood pressure 2025-05-26 15:33:00 123 mm[Hg] [facility] Diastolic blood pressure 2025-05-26 15:33:00 87 mm[Hg] [facility] Heart rate 2025-05-26 15:33:00 93 /min [facility] Respiratory rate 2025-05-26 15:33:00 18 /min [facility] Body height 2025-05-26 15:33:00 162.6 cm [facility] Body weight 2025-05-26 15:33:00 104.327 kg [facility] BMI 2025-05-26 15:33:00 39.48 kg/m2 [facility] Oxygen saturation in Arterial blood by Pulse oximetry 2025-05-26 15:33:00 97 /min [facility] Systolic blood pressure 2025-04-28 14:04:00 124 mm[Hg] [facility] Diastolic blood pressure 2025-04-28 14:04:00 85 mm[Hg] [facility] Heart rate 2025-04-28 14:04:00 95 /min [facility] Respiratory rate 2025-04-28 14:04:00 20 /min [facility] Body height 2025-04-28 14:04:00 162.6 cm [facility] Body weight 2025-04-28 14:04:00 102.513 kg [facility] BMI 2025-04-28 14:04:00 38.79 kg/m2 [facility] Oxygen saturation in Arterial blood by Pulse oximetry 2025-04-28 14:04:00 98 /min [facility] Systolic blood pressure 2025-04-06 19:04:00 117 mm[Hg] [facility] Diastolic blood pressure 2025-04-06 19:04:00 83 mm[Hg] [facility] Heart rate 2025-04-06 19:04:00 99 /min [facility] Body temperature 2025-04-06 19:04:00 36.72 Lakisha [facility] Respiratory rate 2025-04-06 19:04:00 18 /min [facility] Body height 2025-04-06 19:04:00 162.6 cm [facility] Body weight 2025-04-06 19:04:00 102.195 kg [facility] BMI 2025-04-06 19:04:00 38.67 kg/m2 [facility] Oxygen saturation in Arterial blood by Pulse oximetry 2025-04-06 19:04:00 98 /min [facility] Systolic blood pressure 2025-03-03 19:22:00 125 mm[Hg] [facility] Diastolic blood pressure 2025-03-03 19:22:00 82 mm[Hg] [facility] Heart rate 2025-03-03 19:22:00 101 /min [facility] Body temperature 2025-03-03 19:22:00 36.44 Lakisha [facility] Body height 2025-03-03 19:22:00 162.6 cm [facility] Body weight 2025-03-03 19:22:00 103.964 kg [facility] BMI 2025-03-03 19:22:00 39.34 kg/m2 [facility] Systolic blood pressure 2025-02-10 15:18:00 114 mm[Hg] [facility] Diastolic blood pressure 2025-02-10 15:18:00 81 mm[Hg] [facility] Heart rate 2025-02-10 15:18:00 84 /min [facility] Body temperature 2025-02-10 15:18:00 37.11 Lakisha [facility] Respiratory rate 2025-02-10 15:18:00 18 /min [facility] Body height 2025-02-10 15:18:00 162.6 cm [facility] Body weight 2025-02-10 15:18:00 103.602 kg [facility] BMI 2025-02-10 15:18:00 39.20 kg/m2 [facility] Oxygen saturation in Arterial blood by Pulse oximetry 2025-02-10 15:18:00 98 /min [facility] Systolic blood pressure 2025-02-07 14:25:00 116 mm[Hg] [facility] Diastolic blood pressure 2025-02-07 14:25:00 78 mm[Hg] [facility] Heart rate 2025-02-07 14:25:00 87 /min [facility] Body height 2025-02-07 14:25:00 162.6 cm [facility] Body weight 2025-02-07 14:25:00 102.649 kg [facility] BMI 2025-02-07 14:25:00 38.84 kg/m2 [facility] Oxygen saturation in Arterial blood by Pulse oximetry 2025-02-07 14:25:00 98 /min [facility] Systolic blood pressure 2024-12-03 16:24:00 122 mm[Hg] [facility] Diastolic blood pressure 2024-12-03 16:24:00 88 mm[Hg] [facility] Heart rate 2024-12-03 16:24:00 100 /min [facility] Body temperature 2024-12-03 16:24:00 36.67 Lakisha [facility] Respiratory rate 2024-12-03 16:24:00 18 /min [facility] Body weight 2024-12-03 16:24:00 100.971 kg [facility] BMI 2024-12-03 16:24:00 38.21 kg/m2 [facility] Systolic blood pressure 2024-09-29 08:02:00 122 mm[Hg] [facility] Diastolic blood pressure 2024-09-29 08:02:00 86 mm[Hg] [facility] Heart rate 2024-09-29 08:02:00 98 /min [facility] Body temperature 2024-09-29 08:02:00 37.06 Lakisha [facility] Respiratory rate 2024-09-29 08:02:00 21 /min [facility] Oxygen saturation in Arterial blood by Pulse oximetry 2024-09-29 08:02:00 98 /min [facility] Body height 2024-09-29 05:20:00 162.6 cm [facility] Body weight 2024-09-29 05:20:00 99.791 kg [facility] BMI 2024-09-29 05:20:00 37.76 kg/m2 [facility] Systolic blood pressure 2024-09-10 20:19:00 118 mm[Hg] [facility] Diastolic blood pressure 2024-09-10 20:19:00 78 mm[Hg] [facility] Heart rate 2024-09-10 20:19:00 98 /min [facility] Respiratory rate 2024-09-10 20:19:00 18 /min [facility] Body height 2024-09-10 20:19:00 162.6 cm [facility] Body weight 2024-09-10 20:19:00 99.338 kg [facility] BMI 2024-09-10 20:19:00 37.59 kg/m2 [facility] Systolic blood pressure 2024-06-21 19:23:00 129 mm[Hg] [facility] Diastolic blood pressure 2024-06-21 19:23:00 85 mm[Hg] [facility] Heart rate 2024-06-21 19:23:00 108 /min [facility] Body temperature 2024-06-21 19:23:00 36.67 Lakisha [facility] Respiratory rate 2024-06-21 19:23:00 18 /min [facility] Body height 2024-06-21 19:23:00 162.6 cm [facility] Body weight 2024-06-21 19:23:00 103.692 kg [facility] BMI 2024-06-21 19:23:00 39.24 kg/m2 [facility] Systolic blood pressure 2024-03-26 15:43:00 122 mm[Hg] [facility] Diastolic blood pressure 2024-03-26 15:43:00 79 mm[Hg] [facility] Heart rate 2024-03-26 15:43:00 104 /min [facility] Respiratory rate 2024-03-26 15:43:00 16 /min [facility] Body height 2024-03-26 15:43:00 162.6 cm [facility] Body weight 2024-03-26 15:43:00 101.152 kg [facility] BMI 2024-03-26 15:43:00 38.28 kg/m2 [facility] Oxygen saturation in Arterial blood by Pulse oximetry 2024-03-26 15:43:00 97 /min [facility] Systolic blood pressure 2024-01-02 19:14:00 117 mm[Hg] [facility] Diastolic blood pressure 2024-01-02 19:14:00 80 mm[Hg] [facility] Heart rate 2024-01-02 19:14:00 104 /min [facility] Body temperature 2024-01-02 19:14:00 36.89 Lakisha [facility] Respiratory rate 2024-01-02 19:14:00 18 /min [facility] Body height 2024-01-02 19:14:00 162.6 cm [facility] Body weight 2024-01-02 19:14:00 109.498 kg [facility] BMI 2024-01-02 19:14:00 41.44 kg/m2 [facility] Systolic blood pressure 2023-10-01 16:12:00 118 mm[Hg] [facility] Diastolic blood pressure 2023-10-01 16:12:00 78 mm[Hg] [facility] Heart rate 2023-10-01 16:12:00 87 /min [facility] Body temperature 2023-10-01 16:12:00 36.44 Lakisha [facility] Respiratory rate 2023-10-01 16:12:00 18 /min [facility] Body weight 2023-10-01 16:12:00 111.403 kg [facility] BMI 2023-10-01 16:12:00 42.16 kg/m2 [facility] Systolic blood pressure 2023-08-10 04:35:00 133 mm[Hg] [facility] Diastolic blood pressure 2023-08-10 04:35:00 95 mm[Hg] [facility] Heart rate 2023-08-10 04:35:00 86 /min [facility] Body temperature 2023-08-10 04:35:00 37.5 Lakisha [facility] Respiratory rate 2023-08-10 04:35:00 18 /min [facility] Oxygen saturation in Arterial blood by Pulse oximetry 2023-08-10 04:35:00 97 /min [facility] Body height 2023-08-10 02:50:00 162.6 cm [facility] Body weight 2023-08-10 02:50:00 109.272 kg [facility] BMI 2023-08-10 02:50:00 41.35 kg/m2 [facility] Systolic blood pressure 2023-07-15 20:52:00 115 mm[Hg] [facility] Diastolic blood pressure 2023-07-15 20:52:00 78 mm[Hg] [facility] Heart rate 2023-07-15 20:52:00 99 /min [facility] 2023-07-15 20:52:00 18 /min [facility] Body height 2023-07-15 20:52:00 162.6 cm [facility] 2023-07-15 20:52:00 107.502 kg [facility] BMI 2023-07-15 20:52:00 40.68 kg/m2 [facility] Oxygen saturation in Arterial blood by Pulse oximetry 2023-07-15 20:52:00 99 /min [facility] Systolic blood pressure 2023-07-11 17:32:00 123 mm[Hg] [facility] Diastolic blood pressure 2023-07-11 17:32:00 85 mm[Hg] [facility] Heart rate 2023-07-11 17:32:00 84 /min [facility] Body temperature 2023-07-11 17:32:00 36.78 Lakisha [facility] Body height 2023-07-11 17:32:00 162.6 cm [facility] Body weight 2023-07-11 17:32:00 106.142 kg [facility] BMI 2023-07-11 17:32:00 40.17 kg/m2 [facility] Systolic blood pressure 2023-06-03 15:45:00 124 mm[Hg] [facility] Diastolic blood pressure 2023-06-03 15:45:00 89 mm[Hg] [facility] Heart rate 2023-06-03 15:45:00 81 /min [facility] Body height 2023-06-03 15:45:00 162.6 cm [facility] Body weight 2023-06-03 15:45:00 103.647 kg [facility] BMI 2023-06-03 15:45:00 39.22 kg/m2 [facility] Oxygen saturation in Arterial blood by Pulse oximetry 2023-06-03 15:45:00 99 /min [facility] Systolic blood pressure 2023-05-30 20:59:00 118 mm[Hg] [facility] Diastolic blood pressure 2023-05-30 20:59:00 72 mm[Hg] [facility] Heart rate 2023-05-30 20:59:00 90 /min [facility] Body temperature 2023-05-30 20:59:00 36.72 Lakisha [facility] Respiratory rate 2023-05-30 20:59:00 18 /min [facility] Body height 2023-05-30 20:59:00 162.6 cm [facility] Body weight 2023-05-30 20:59:00 103.42 kg [facility] BMI 2023-05-30 20:59:00 39.14 kg/m2 [facility] Systolic blood pressure 2023-04-18 15:55:00 121 mm[Hg] [facility] Diastolic blood pressure 2023-04-18 15:55:00 84 mm[Hg] [facility] Heart rate 2023-04-18 15:55:00 86 /min [facility] Body temperature 2023-04-18 15:55:00 36.83 Lakisha [facility] Respiratory rate 2023-04-18 15:55:00 18 /min [facility] Body height 2023-04-18 15:55:00 162.6 cm [facility] Body weight 2023-04-18 15:55:00 102.513 kg [facility] BMI 2023-04-18 15:55:00 38.79 kg/m2 [facility] Systolic blood pressure 2023-03-19 20:33:00 111 mm[Hg] [facility] Diastolic blood pressure 2023-03-19 20:33:00 77 mm[Hg] [facility] Heart rate 2023-03-19 20:33:00 105 /min [facility] Respiratory rate 2023-03-19 20:33:00 18 /min [facility] Body height 2023-03-19 20:33:00 157.5 cm [facility] Body weight 2023-03-19 20:33:00 102.15 kg [facility] BMI 2023-03-19 20:33:00 41.19 kg/m2 [facility] Systolic blood pressure 2023-03-01 01:07:00 124 mm[Hg] [facility] Diastolic blood pressure 2023-03-01 01:07:00 70 mm[Hg] [facility] Body temperature 2023-03-01 01:07:00 36.56 Lakisha [facility] Respiratory rate 2023-03-01 01:07:00 18 /min [facility] Oxygen saturation in Arterial blood by Pulse oximetry 2023-03-01 01:07:00 100 /min [facility] Heart rate 2023-02-28 18:30:00 107 /min [facility] Body height 2023-02-26 20:59:00 162.6 cm [facility] Body weight 2023-02-26 20:59:00 111.403 kg [facility] BMI 2023-02-26 20:59:00 42.16 kg/m2 [facility] Heart rate 2023-02-20 03:15:00 85 /min [facility] Oxygen saturation in Arterial blood by Pulse oximetry 2023-02-20 03:15:00 99 /min [facility] Systolic blood pressure 2023-02-20 03:00:00 116 mm[Hg] [facility] Diastolic blood pressure 2023-02-20 03:00:00 65 mm[Hg] [facility] Body temperature 2023-02-20 02:38:00 36.67 Lakisha [facility] Respiratory rate 2023-02-20 02:38:00 20 /min [facility] Systolic blood pressure 2023-02-19 18:53:00 127 mm[Hg] [facility] Diastolic blood pressure 2023-02-19 18:53:00 80 mm[Hg] [facility] Heart rate 2023-02-19 18:53:00 88 /min [facility] Body temperature 2023-02-19 18:53:00 36.72 Lakisha [facility] Respiratory rate 2023-02-19 18:53:00 16 /min [facility] Body height 2023-02-19 18:53:00 162.6 cm [facility] Body weight 2023-02-19 18:53:00 111.267 kg [facility] BMI 2023-02-19 18:53:00 42.11 kg/m2 [facility] Systolic blood pressure 2023-02-12 18:15:00 109 mm[Hg] [facility] Diastolic blood pressure 2023-02-12 18:15:00 76 mm[Hg] [facility] Heart rate 2023-02-12 18:15:00 98 /min [facility] Respiratory rate 2023-02-12 18:15:00 18 /min [facility] Body height 2023-02-12 18:15:00 162.6 cm [facility] Body weight 2023-02-12 18:15:00 110.224 kg [facility] BMI 2023-02-12 18:15:00 41.71 kg/m2 [facility] Systolic blood pressure 2023-02-05 18:36:00 117 mm[Hg] [facility] Diastolic blood pressure 2023-02-05 18:36:00 81 mm[Hg] [facility] Heart rate 2023-02-05 18:36:00 97 /min [facility] Respiratory rate 2023-02-05 18:36:00 16 /min [facility] Body height 2023-02-05 18:36:00 162.6 cm [facility] Body weight 2023-02-05 18:36:00 111.041 kg [facility] BMI 2023-02-05 18:36:00 42.02 kg/m2 [facility] Oxygen saturation in Arterial blood by Pulse oximetry 2023-02-05 18:36:00 98 /min [facility] Systolic blood pressure 2023-01-29 14:00:00 108 mm[Hg] [facility] Diastolic blood pressure 2023-01-29 14:00:00 74 mm[Hg] [facility] Heart rate 2023-01-29 14:00:00 84 /min [facility] Body temperature 2023-01-29 14:00:00 36.72 Lakisha [facility] Respiratory rate 2023-01-29 14:00:00 18 /min [facility] Body height 2023-01-29 14:00:00 162.6 cm [facility] Body weight 2023-01-29 14:00:00 110.496 kg [facility] BMI 2023-01-29 14:00:00 41.81 kg/m2 [facility] Systolic blood pressure 2023-01-15 22:35:00 113 mm[Hg] [facility] Diastolic blood pressure 2023-01-15 22:35:00 79 mm[Hg] [facility] Heart rate 2023-01-15 22:35:00 94 /min [facility] Body temperature 2023-01-15 22:35:00 36.78 Lakisha [facility] Respiratory rate 2023-01-15 22:35:00 17 /min [facility] Body height 2023-01-15 22:35:00 162.6 cm [facility] Body weight 2023-01-15 22:35:00 110.678 kg [facility] BMI 2023-01-15 22:35:00 41.88 kg/m2 [facility] Systolic blood pressure 2022-12-25 19:00:00 130 mm[Hg] [facility] Diastolic blood pressure 2022-12-25 19:00:00 84 mm[Hg] [facility] Heart rate 2022-12-25 19:00:00 98 /min [facility] Body temperature 2022-12-25 19:00:00 36.67 Lakisha [facility] Respiratory rate 2022-12-25 19:00:00 16 /min [facility] Body height 2022-12-25 19:00:00 162.6 cm [facility] Body weight 2022-12-25 19:00:00 111.086 kg [facility] BMI 2022-12-25 19:00:00 42.04 kg/m2 [facility] Oxygen saturation in Arterial blood by Pulse oximetry 2022-12-25 19:00:00 97 /min [facility] Systolic blood pressure 2022-12-18 15:28:00 113 mm[Hg] [facility] Diastolic blood pressure 2022-12-18 15:28:00 77 mm[Hg] [facility] Heart rate 2022-12-18 15:28:00 93 /min [facility] Body temperature 2022-12-18 15:28:00 36.83 Lakisha [facility] Respiratory rate 2022-12-18 15:28:00 16 /min [facility] Body height 2022-12-18 15:28:00 162.6 cm [facility] Body weight 2022-12-18 15:28:00 110.95 kg [facility] BMI 2022-12-18 15:28:00 41.99 kg/m2 [facility] Oxygen saturation in Arterial blood by Pulse oximetry 2022-12-18 15:28:00 97 /min [facility] Systolic blood pressure 2022-12-09 20:14:00 110 mm[Hg] [facility] Diastolic blood pressure 2022-12-09 20:14:00 72 mm[Hg] [facility] Heart rate 2022-12-09 20:14:00 103 /min [facility] Body temperature 2022-12-09 20:14:00 36.83 Lakisha [facility] Respiratory rate 2022-12-09 20:14:00 20 /min [facility] Body height 2022-12-09 20:14:00 162.6 cm [facility] Body weight 2022-12-09 20:14:00 113.581 kg [facility] BMI 2022-12-09 20:14:00 42.98 kg/m2 [facility] Systolic blood pressure 2022-12-03 20:47:00 108 mm[Hg] [facility] Diastolic blood pressure 2022-12-03 20:47:00 73 mm[Hg] [facility] Heart rate 2022-12-03 20:47:00 113 /min [facility] Body temperature 2022-12-03 20:47:00 37 Lakisha [facility] Respiratory rate 2022-12-03 20:47:00 16 /min [facility] Body height 2022-12-03 20:47:00 162.6 cm [facility] Body weight 2022-12-03 20:47:00 111.993 kg [facility] BMI 2022-12-03 20:47:00 42.38 kg/m2 [facility] Oxygen saturation in Arterial blood by Pulse oximetry 2022-12-03 20:47:00 98 /min [facility] Systolic blood pressure 2022-12-03 02:08:00 119 mm[Hg] [facility] Diastolic blood pressure 2022-12-03 02:08:00 71 mm[Hg] [facility] Heart rate 2022-12-03 02:08:00 93 /min [facility] Oxygen saturation in Arterial blood by Pulse oximetry 2022-12-03 02:08:00 100 /min [facility] Body temperature 2022-12-02 23:06:00 37.17 Lakisha [facility] Respiratory rate 2022-12-02 23:06:00 18 /min [facility] Body height 2022-12-02 23:06:00 162.6 cm [facility] Body weight 2022-12-02 23:06:00 112.492 kg [facility] BMI 2022-12-02 23:06:00 42.57 kg/m2 [facility] Procedures Procedure Date / Time Performed Performing Clinician Source CBC WITH DIFF 2025-04-28 14:37:00 Luz Contreras [facility] THYROID STIMULATING HORMONE 2025-04-28 14:35:00 Luz Contreras [facility] COMP. METABOLIC PANEL (47042) 2025-04-28 14:35:00 Luz Contreras [facility] LIPID PANEL (70160)(TOTAL CHOLESTEROL, TRIGLYCERIDES, HDL) 2025-04-28 14:35:00 Luz Contreras [facility] GLYCOSYLATED HEMOGLOBIN (A1C) 2025-04-28 14:35:00 Luz Contreras [facility] POCT HEMOGLOBIN A1C TEST 2025-04-28 14:15:00 Nany Contreras [facility] CT ABDOMEN PELVIS W CONTRAST 2024-09-29 06:33:52 Radames Morris [facility] LIPASE 2024-09-29 05:34:00 Radames Morris [facility] COMP. METABOLIC PANEL (34511) 2024-09-29 05:34:00 Radames Morris [facility] CBC WITH DIFF 2024-09-29 05:34:00 Radames Morris [facility] POCT TEST 2024-09-29 05:31:00 Radames Morris [facility] ASSIGNMENT OF BENEFITS 2024-01-02 18:51:02 Docto r Unassigned, [facility] RAPID STREP SCREEN FOR GROUP A 2023-08-10 03:33:00 Peter Victor [facility] POCT TEST 2023-08-10 02:56:00 Helena Victor [facility] CONSENT/REFUSAL FOR DIAGNOSIS AND TREATMENT 2023-08-10 02:46:25 Doctor Unassigned, [facility] GLUCOSE FASTING 2023-05-28 14:43:00 Adum, Eladia Dasilva [facility] CONSENT FOR CONTRACEPTION 2023-04-18 05:01:00 Doctor Unassigned, [facility] POCT TEST 2023-04-18 00:00:00 Adum, Eladia Dasilva [facility] CBC WITH DIFF 2023-02-28 09:05:00 Adum, Eladia Dasilva [facility] POCT GLUCOSE (AUTOMATED) 2023-02-27 21:01:00 Adum, Manisha Dasilva [facility] POCT GLUCOSE (AUTOMATED) 2023-02-27 18:01:00 Adum, Manisha najeran Vidya [facility] CENTRAL NEURAXIAL BLOCK 2023-02-27 16:16:00 Janett Garland [facility] POCT GLUCOSE (AUTOMATED) 2023-02-27 14:08:00 Adum, Manisha najeran Vidya [facility] POCT GLUCOSE (AUTOMATED) 2023-02-27 10:03:00 Adum, Manisha najerajairo Dasilva [facility] POCT GLUCOSE (AUTOMATED) 2023-02-27 06:03:00 Adum, Manisha najeran Vidya [facility] POCT GLUCOSE (AUTOMATED) 2023-02-27 02:05:00 Adum, Manisha najeran Vidya [facility] POCT GLUCOSE (AUTOMATED) 2023-02-26 22:06:00 Adum, Manisha najeran Vidya [facility] CBC WITH DIFF 2023-02-26 22:00:00 Adum, Eladia [facility]ilva [facility] HEPATITIS B SURFACE ANTIGEN 2023-02-26 22:00:00 Adum, Eladia Dasilva [facility] HB ABO GROUPING 2023-02-26 22:00:00 Adum, [facility] E[facility]IO ONLY - RPR 2023-02-26 22:00:00 Adum, Eladai Dasilva [facility] HIV 1/2 AG-AB WITH REFLEX 2023-02-26 22:00:00 Adum, Eladia Vidya [facility] HOSPITAL ADMISSION 2023-02-26 05:01:00 Doctor Un assigned, [facility] CONSENT/REFUSAL FOR DIAGNOSIS AND TREATMENT 2023-02-20 19:26:43 Doctor Unassigned, [facility] POCT GLUCOSE (AUTOMATED) 2023-02-20 02:59:00 Adum, Manisha osmin Dasilva [facility] ADC ONLY - FERN TEST 2023-02-20 02:52:00 Adum, Eladia L [facility] ASSIGNMENT OF BENEFITS 2023-02-20 02:22:47 Docto r Unassigned, [facility] CONSENT/REFUSAL FOR DIAGNOSIS AND TREATMENT 2023-02-20 02:20:09 Doctor Unassigned, [facility] AUTHORIZATION FOR RELEASE OF PHI 2023-02-19 05:01:00 Doctor Unassigned, [facility] L&D VISIT (NON-DELIVERED) 2023-02-19 05:01:00 Doctor Unassigned, [facility] POCT URINALYSIS W/O SPECIFIC GRAVITY 2023-02-19 00:00:00 Adum, Eladia Dasilva [facility] POCT URINALYSIS W/O SPECIFIC GRAVITY 2023-02-12 00:00:00 Adum, Eladia Dasilva [facility] DSU PRE-OP 2023-02-05 05:01:00 Doctor Unass igned, [facility] POCT URINALYSIS W/O SPECIFIC GRAVITY 2023-02-05 00:00:00 Ingrid Cruz [facility] POCT URINALYSIS W/O SPECIFIC GRAVITY 2023-01-29 14:14:00 Adum, Eladia Dasilva [facility] TDAP VACCINE, >11 YRS, IM 2023-01-15 22:43:12 Adum, Eladia Dasilva [facility] POCT URINALYSIS W/O SPECIFIC GRAVITY 2023-01-15 00:00:00 Adum, Eladia Dasilva [facility] POCT URINALYSIS W/O SPECIFIC GRAVITY 2022-12-25 00:00:00 Adum, Eladia Dasilva [facility] POCT URINALYSIS W/O SPECIFIC GRAVITY 2022-12-18 00:00:00 Adum, Eladia Dasilva [facility] CBC WITH DIFF 2022-12-04 16:31:00 Adum, Eladia Dasilva [facility] US PELVIS > 14 WEEKS 2022-12-03 02:23:47 Fior Anderson [facility] POCT URINALYSIS W/O SPECIFIC GRAVITY 2022-12-03 00:00:00 Adum, Eladia Dasilva [facility] ADC CLC OR LCC ONLY - WET PREP 2022-12-02 23:35:00 Fior Anderson [facility] NOTICE OF PRIVACY PRACTICES 2022-12-02 22:45:34 Doctor Unassigned, [facility] CONSENT/REFUSAL FOR DIAGNOSIS AND TREATMENT 2022-12-02 22:36:01 Doctor Unassigned, [facility] Encounters Start Date/Time End Date/Time Encounter Type Admission Type Attending Clinicians Care Facility Care Department Encounter ID Source 2025-08-18 09:45:00 2025-08-18 10:03:30 Nurse [facility] R [facility] 1.2.840.114 350.1.13.10 4.2.7.2.686 [id number] 134 [id number] [facility] 2025-04-29 00:00:00 2025-06-04 18:33:33 Patient Secure Msg Ben Luz [facility] 1.2.840.114 350.1.13.10 4.2.7.2.686 [id number] [facility] 2025-05-26 10:30:00 2025-05-26 10:48:58 [facility], [facility] 1.2.840.114 350.1.13.10 4.2.7.2.686 [id number] 134 [id number] [facility] 2025-05-26 10:30:00 2025-05-26 10:30:00 Outpatient R [facility] [id number] [facility] 2025-04-07 00:00:00 2025-05-14 18:33:43 Patient Secure Msg TriciaManisha talbertosmin Dasilva [facility] 1.2.840.114 350.1.13.10 4.2.7.2.686 [id number] [facility] 2025-04-28 00:00:00 2025-05-01 15:24:05 Refill Luz Contreras [facility] 1.2.840.114 350.1.13.10 4.2.7.2.686 [id number] [facility] 2025-04-29 00:00:00 2025-04-29 17:01:34 Patient Secure Msg Luz Contreras [facility] 1.2.114 350.1.13.10 4.2.7.2.686 [id number] [facility] 2025-04-28 09:00:00 2025-04-28 09:29:12 Office Visit R Ben [facility] 1.114 350.1.13.10 4.2.7.2.686 [id number] [facility] 2025-04-28 09:00:00 2025-04-28 09:00:00 Outpatient R LUZ CONTRERAS [facility] [id number] [facility] 2025-04-06 14:00:00 2025-04-06 14:18:13 Office Visit R ELADIA BRASWELL [facility] 1.114 350.1.13.10 4.2.7.2.686 [id number] 134 [id number] [facility] 2025-04-06 14:00:00 2025-04-06 14:00:00 Outpatient R ELADIA BRASWELL [facility] [id number] [facility] 2025-02-09 00:00:00 2025-03-12 18:14:32 Patient Secure Msg Doctor Unassigned, [place] Doctor Unassigned, [facility] 1.84.114 350.1.13.10 4.2.7.2.686 [id number] [facility] 2025-03-04 00:00:00 2025-03-04 13:43:54 Case Management Eladia Braswell [facility] 1.2.840.114 350.1.13.10 4.2.7.2.686 [id number] [facility] 2025-03-03 14:00:00 2025-03-03 14:45:50 Outpatient R ELADIA BRASWELL [facility] [id number] [facility] 2025-03-03 14:00:00 2025-03-03 14:45:50 Office Visit Eladia Braswell [facility] 1..840.114 350.1.13.10 4.2.7.2.686 [id number] [facility] 2025-02-11 00:00:00 2025-02-11 00:00:00 Outpatient R PARIS VELÁZQUEZ [facility] [id number] [facility] 2025-02-10 10:00:00 2025-02-10 10:31:36 Outpatient R CONTRERASTACOS NDIAYEN [facility] [id number] [facility] 2025-02-10 10:00:00 2025-02-10 10:31:36 Office Visit Contreras Luz [facility] 1..840.114 350.1.13.10 4.2.7.2.686 [id number] [id number] [facility] 2025-02-07 10:15:00 2025-02-07 10:30:00 Testboard Operator Visit Lab, Ang - [place] Kwan Lab, Ang - Bryan [facility] 1..840.114 350.1.13.10 4.2.7.2.686 [id number] [facility] 2025-02-07 09:00:00 2025-02-07 09:46:08 Outpatient R PARIS VELÁZQUEZ [facility] [id number] [facility] 2025-02-07 09:00:00 2025-02-07 09:46:08 Office Visit Paris Vel[facility] 1.2.840.114 350.1.13.10 4.2.7.2.686 [id number] [facility] 2024-12-27 10:46:30 2024-12-27 10:46:30 Outpatient [facility] [id number] Ezio Pierre 2024-12-03 10:00:00 2024-12-03 10:24:39 Outpatient R ELADIA BRASWELL [facility] [id number] [facility] 2024-12-03 10:00:00 2024-12-03 10:24:39 [facility] PROFESSIO NAL BUILDING 1.2.840.114 350.1.13.10 4.2.7.2.686 [id number] 134 [id number] [facility] 2024-09-28 23:22:00 2024-09-29 02:11:00 Emergency X RADAMES MORRIS [facility] ERT [id number] [facility] 2024-09-28 23:22:00 2024-09-29 02:11:00 Emergency Radames Morris [facility] 1..840.114 350.1.13.10 4.2.7.2.686 [id number] [facility] 2024-09-13 10:30:00 2024-09-13 10:30:00 Outpatient R [facility] [id number] [facility] 2024-09-10 15:00:00 2024-09-10 15:23:47 Outpatient R TRICIAUMELADIA VIVIAN [facility] [id number] [facility] 2024-09-10 15:00:00 2024-09-10 15:23:47 [facility], [facility] BU[facility] 1.2.840.114 350.1.13.10 4.2.7.2.686 [id number] 134 [id number] [facility] 2024-06-21 14:00:00 2024-06-21 14:26:02 Outpatient R ADUMELADIA [facility] [id number] [facility] 2024-06-21 14:00:00 2024-06-21 14:26:02 Nurse [facility], [facility], [facility] 1.2.840.114 350.1.13.10 4.2.7.2.686 [id number] [facility] 2024-03-26 10:30:00 2024-03-26 10:43:37 Outpatient R MONICA FIOR [facility] [id number] [facility] 2024-03-26 10:30:00 2024-03-26 10:43:37 Nurse Visit Nurse, Lksusan [facility] Fior Anderson [facility] 1.2840.114 350.1.13.10 4.2.7.2.686 [id number] 134 [id number] [facility] 2024-01-02 13:00:00 2024-01-02 14:26:22 Outpatient R ADUM [facility] [id number] [facility] 2024-01-02 13:00:00 2024-01-02 14:26:22 Office Visit Eladia Braswell [facility] 1.2.840.114 350.1.13.10 4.2.7.2.686 [id number] [facility] 2024-01-02 00:00:00 2024-01-02 00:00:00 Orders Only Doctor Unassigned, [place] 1..840.114 350.1.13.10 4.2.7.2.686 [id number] [facility] 2024-01-01 13:30:00 2024-01-01 13:30:00 Outpatient R ELADIA BRASWELL [facility] [id number] [facility] 2023-10-16 11:00:00 2023-10-16 11:00:00 Outpatient R MARITZA GAGE [facility] [id number] [facility] 2023-10-03 10:30:00 2023-10-03 10:30:00 Outpatient R [facility] [id number] [facility] 2023-10-01 10:00:00 2023-10-01 10:12:42 Outpatient R ELADIA BRASWELL [facility] [id number] [facility] 2023-10-01 10:00:00 2023-10-01 10:12:42 Nurse Visit Nurse, [facility] Eladia Braswell [facility] 1..840.114 350.1.13.10 4.2.7.2.686 [id number] [facility] 2023-08-09 21:52:00 2023-08-09 23:40:00 Emergency X [facility] ERT [id number] [facility] 2023-08-09 21:52:00 2023-08-09 23:40:00 Emergency Peter Victor [facility] 1..840.114 350.1.13.10 4.2.7.2.686 [id number] [facility] 2023-07-30 15:00:00 2023-07-30 15:14:22 Outpatient R PENELOPE HINES [facility] [id number] [facility] 2023-07-30 15:00:00 2023-07-30 15:14:22 Office Visit Froylan Delgado [facility] 1.2.840.114 350.1.13.10 4.2.7.2.686 [id number] [facility] 2023-07-23 00:00:00 2023-07-23 00:00:00 Telephone Too Marit[facility] 1.2.840.114 350.1.13.10 4.2.7.2.686 [id number] [facility] 2023-07-15 15:30:00 2023-07-15 16:04:18 [facility] [id number] [facility] 2023-07-15 15:30:00 2023-07-15 16:04:18 [facility] 1..840.114 350.1.13.10 4.2.7.2.686 [id number] [facility] 2023-07-15 10:00:00 2023-07-15 10:00:00 Outpatient R TOO MARITZA [facility] [id number] [facility] 2023-07-11 10:30:00 2023-07-11 10:45:00 Nurse Visit Nurse, [facility] Eladia Braswell [facility] BUILD[facility] 1..840.114 350.1.13.10 4.2.7.2.686 [id number] 134 [id number] [facility] 2023-07-11 10:30:00 2023-07-11 10:30:00 Outpatient ELADIA GARBER [facility] [id number] [facility] 2023-06-03 13:30:00 2023-06-03 13:45:00 Testboard Operator Visit 2, Adc Lab Maritza Gage [facility] 1..840.114 350.1.13.10 4.2.7.2.686 [id number] [facility] 2023-06-03 13:30:00 2023-06-03 13:30:00 Outpatient R MARITZA GAGE [facility] [id number] [facility] 2023-06-03 10:30:00 2023-06-03 11:00:00 Office Visit Maritza Gage [facility] 1..840.114 350.1.13.10 4.2.7.2.686 [id number] [facility] 2023-05-30 15:30:00 2023-05-30 16:44:26 Outpatient R ADGALI [facility] [id number] [facility] 2023-05-30 15:30:00 2023-05-30 16:44:26 Office Visit AdEladia talbert [facility] 1..840.114 350.1.13.10 4.2.7.2.686 [id number] [facility] 2023-05-28 09:45:00 2023-05-28 10:00:00 Testboard Operator Visit Pob, Adc Lab Main AdEladia talbert [facility] BUILDING 1..840.114 350.1.13.10 4.2.7.2.686 [id number] [facility] 2023-05-28 09:45:00 2023-05-28 09:45:00 Outpatient R TRICIAELADIA TALBERT [facility] [id number] [facility] 2023-05-28 00:00:00 2023-05-28 00:00:00 Patient Secure Msg Doctor Unassigned, [place] 1.84.114 350.1.13.10 4.2.7.2.686 [id number] [facility] [id number] [facility] 2023-05-16 13:30:00 2023-05-16 13:30:00 Outpatient R MARITZA GAGE [facility] [id number] [facility] 2023-05-13 00:00:00 2023-05-13 00:00:00 Patient Secure Msg Adum, [facility] BUILDING 1.284.114 350.1.13.10 4.2.7.2.686 [id number] [facility] 2023-05-07 00:00:00 2023-05-07 00:00:00 Patient Secure Msg Adgali, [facility] BUILDING 1.84.114 350.1.13.10 4.2.7.2.686 [id number] [facility] 2023-04-18 11:00:00 2023-04-18 11:56:08 Outpatient R VANESSA [facility] [id number] [facility] 2023-04-18 11:00:00 2023-04-18 11:56:08 Routine Visit Adgali [facility] 1.284.114 350.1.13.10 4.2.7.2.686 [id number] [facility] 2023-04-18 00:00:00 2023-04-18 00:00:00 Orders Only Doctor Unassigned, [place] [facility] 1.2.114 350.1.13.10 4.2.7.2.686 [id number] [facility] 2023-03-19 15:30:00 2023-03-19 15:52:32 Outpatient R TRICIAGALI [facility] [id number] [facility] 2023-03-19 15:30:00 2023-03-19 15:52:32 Routine Visit AdEladia talbert [facility] 1.2.840.114 350.1.13.10 4.2.7.2.686 [id number] [facility] 2023-03-05 00:00:00 2023-03-05 00:00:00 Encounter 1.2.840.1 [id number] [id number] 1.2.840.114 350.1.13.10 4.2.7.2.696 [id number] [facility] 2023-03-03 00:00:00 2023-03-03 00:00:00 Letter (Out) Adum, Eladia Dasilva [facility] 1.2.840.114 350.1.13.10 4.2.7.2.686 [id number] [facility] 2023-03-01 00:00:00 2023-03-01 00:00:00 Patient Secure Msg Doctor Unassigned, [place] [facility] 1.2.840.114 350.1.13.10 4.2.7.2.686 [id number] [facility] 2023-02-26 15:25:00 2023-02-28 21:45:00 Inpatient X ADUM, ELADIA [facility] DEANDRE [id number] [facility] 2023-02-26 15:25:00 2023-02-28 21:45:00 Hospital Encounter AdEladia talbert [facility] 1.2.840.114 350.1.13.10 4.2.7.2.686 [id number] [facility] 2023-02-27 10:32:00 2023-02-27 19:15:00 Anesthesia Event Ganga Velasco [facility] 1.2.840.114 350.1.13.10 4.2.7.2.686 [id number] [facility] 2023-02-27 10:57:29 2023-02-27 10:57:29 Anesthesia Event Akira Garland [facility] 1.2.840.114 350.1.13.10 4.2.7.2.686 [id number] [id number] [facility] 2023-02-26 00:00:00 2023-02-26 00:00:00 Orders Only Doctor Unassigned, [place] [facility] 1.2.840.114 350.1.13.10 4.2.7.2.686 [id number] [facility] 2023-02-25 00:00:00 2023-02-25 00:00:00 [facility] 1.2.840.114 350.1.13.10 4.2.7.2.686 [id number] [facility] 2023-02-20 00:00:00 2023-02-20 00:00:00 Patient Secure Msg Adgali [facility] 1.2.840.114 350.1.13.10 4.2.7.2.686 [id number] [facility] 2023-02-20 00:00:00 2023-02-20 00:00:00 Orders Only Doctor Unassigned, [place] [facility] 1.2.840.114 350.1.13.10 4.2.7.2.686 [id number] [facility] 2023-02-19 21:24:00 2023-02-19 23:00:00 Outpatient X ADGALI [facility] [id number] [facility] [facility] 2023-02-19 21:24:00 2023-02-19 23:00:00 Emergency Adum, Eladia Dasilva [facility] 1.2.840.114 350.1.13.10 4.2.7.2.686 [id number] [facility] 2023-02-19 13:45:00 2023-02-19 14:25:07 Outpatient R ADUM, ELADIA [facility] [id number] [facility] 2023-02-19 13:45:00 2023-02-19 14:25:07 [facility] 1.2.840.114 350.1.13.10 4.2.7.2.686 [id number] 134 [id number] [facility] 2023-02-14 00:00:00 2023-02-14 00:00:00 Refill Adum, [facility] 1.2.840.114 350.1.13.10 4.2.7.2.686 [id number] 134 [id number] [facility] 2023-02-12 13:00:00 2023-02-12 13:44:05 [facility] [id number] [facility] 2023-02-12 13:00:00 2023-02-12 13:44:05 Routine Visit Adum, [facility] 1.2.840.114 350.1.13.10 4.2.7.2.686 [id number] 134 [id number] [facility] 2023-02-10 00:00:00 2023-02-10 00:00:00 Refill Adum, [facility] 1.2.840.114 350.1.13.10 4.2.7.2.686 [id number] 134 [id number] [facility] 2023-02-06 00:00:00 2023-02-06 00:00:00 Patient Secure Msg AdumEladia [facility] 1.0.114 350.1.13.10 4.2.7.2.686 [id number] 134 [id number] [facility] 2023-02-06 00:00:00 2023-02-06 00:00:00 Case Management Anthony [facility] 1.2840.114 350.1.13.10 4.2.7.2.686 [id number] 134 [id number] [facility] 2023-02-05 16:00:00 2023-02-05 16:15:00 Testboard Operator Visit Pob, [facility] Main Anthony [facility] 1.0.114 350.1.13.10 4.2.7.2.686 [id number] [facility] 2023-02-05 13:15:00 2023-02-05 14:16:57 Routine Visit Eladia Braswell [facility] 1.0.114 350.1.13.10 4.2.7.2.686 [id number] 134 [id number] [facility] 2023-02-05 08:00:00 2023-02-05 08:30:00 Testboard Operator Visit Ultrasound, Ang-Mfm Adia Tuttle [facility] 1.0.114 350.1.13.10 4.2.7.2.686 [id number] [facility] 2023-02-05 08:00:00 2023-02-05 08:21:26 Outpatient P ADIA [facility] [id number] [facility] 2023-02-05 00:00:00 2023-02-05 00:00:00 Orders Only Doctor Unassigned, [place] [facility] 1.2840.114 350.1.13.10 4.2.7.2.686 [id number] [facility] 2023-01-29 09:00:00 2023-01-29 09:15:00 Routine Visit Ad, Eladia [facility] 1.2.840.114 350.1.13.10 4.2.7.2.686 [id number] 134 [id number] [facility] 2023-01-29 09:00:00 2023-01-29 09:00:00 Outpatient R ADUM, [facility] [id number] [facility] 2023-01-29 09:00:00 2023-01-29 09:00:00 Outpatient R ADUM, [facility] [id number] [facility] 2023-01-19 00:00:00 2023-01-19 00:00:00 Refill Adgali, [facility] 1.2.840.114 350.1.13.10 4.2.7.2.686 [id number] 134 [id number] [facility] 2023-01-15 15:45:00 2023-01-15 17:08:59 Outpatient R ADUM, [facility] [id number] [facility] 2023-01-15 15:45:00 2023-01-15 17:08:59 Routine Visit Ad, [facility] 1.2840.114 350.1.13.10 4.2.7.2.686 [id number] 134 [id number] [facility] 2023-01-10 00:00:00 2023-01-10 00:00:00 [facility] 1.2.840.114 350.1.13.10 4.2.7.2.686 [id number] 134 [id number] [facility] 2023-01-08 09:00:00 2023-01-08 09:00:00 Outpatient R ADUM, [facility] [id number] [facility] 2022-12-25 13:00:00 2022-12-25 13:21:10 Outpatient R ADUM, [facility] [id number] [facility] 2022-12-25 13:00:00 2022-12-25 13:21:10 [facility] 1.0.114 350.1.13.10 4.2.7.2.686 [id number] 134 [id number] [facility] 2022-12-18 10:45:00 2022-12-18 12:00:00 Testboard Operator [facility]um, Seema Ramirez [facility] 1.114 350.1.13.10 4.2.7.2.686 [id number] [facility] 2022-12-18 10:45:00 2022-12-18 11:34:28 Outpatient P SEEMA MCGRAW [facility] [id number] [facility] 2022-12-18 09:15:00 2022-12-18 09:58:22 Routine Visit Adum, [facility] 1..114 350.1.13.10 4.2.7.2.686 [id number] 134 [id number] [facility] 2022-12-09 14:00:00 2022-12-09 14:15:00 Nurse Visit Nurse, On license of [facility] Adum, [facility] 1..114 350.1.13.10 4.2.7.2.686 [id number] 134 [id number] [facility] 2022-12-09 14:00:2022-12-09 14:00:00 Outpatient R ADUM, [facility] [id number] [facility] 2022-12-04 09:45:00 2022-12-04 10:00:00 Testboard Operator Visit Pob, Adc Lab Main Adum, Eladia [facility] 1.2.840.114 350.1.13.10 4.2.7.2.686 [id number] [facility] 2022-12-04 09:45:00 2022-12-04 09:45:00 Outpatient R ADUM, [facility] [id number] [facility] 2022-12-04 00:00:00 2022-12-04 00:00:00 Patient Secure Msg Adum, [facility] 1..114 350.1.13.10 4.2.7.2.686 [id number] 134 [id number] [facility] 2022-12-04 00:00:00 2022-12-04 00:00:00 Case Management Adum, [facility] 1.840.114 350.1.13.10 4.2.7.2.686 [id number] 134 [id number] [facility] 2022-12-03 14:30:00 2022-12-03 15:56:13 Outpatient R ADUM, [facility] [id number] [facility] 2022-12-03 14:30:00 2022-12-03 15:56:13 Initial Visit Adum, [facility] 1.2.114 350.1.13.10 4.2.7.2.686 [id number] 134 [id number] [facility] 2022-12-02 16:49:00 2022-12-02 20:20:00 Emergency Anderson, Marion Werner [facility] 1.2.840.114 350.1.13.10 4.2.7.2.686 [id number] [facility] 2022-12-02 16:49:00 2022-12-02 20:20:00 Outpatient X FIOR ANDERSON DEANDRE [id number] [facility] Results Test Description Test Time Test Comments Results Result Co mments Source [facility] [id number] 21:36:50* Test Item Value Reference Range Interpretation Comme nts HEMOGLOBIN A1c (test code = 41498) 5.8 % 4.2-5.6 H [employer] GUIDELINES FOR HGB A1C: PREDIABETES/INCREASED RISK . . . . . . . 5.7-6.4% DIAGNOSIS OF DIABETES . . . . . . . . . >=6.5% WITH CONFIRMATION OR APPROPRIATE SYMPTOMS NOTE: ASSAY MAY BE AFFECTED BY HEMOGLOBINOPATHIES (SICKLE CELL ANEMIA, S-C DISEASE, OTHERS) OR ARTIFICIALLY LOWERED BY DECREASED RED CELL SURVIVAL (HEMOLYTIC ANEMIAS, BLOOD LOSS, ETC.). CONSIDER ALTERNATE TESTING OR LABORATORY CONSULTATION. LIPID [id number] 07:23:38* Test Item Value Reference Range Interpretation Comme nts CHOLESTEROL (test code = 2210) 200 MG/DL <200 H TRIGLYCERIDES (test code = 2232) 134 MG/DL <150 HDL CHOLESTEROL (test code = 2220) 43 MG/DL >39 CALC LDL CHOL (test code = 2237) 132 MG/DL <100 H NOTE: CALCULATED LDL IS BASED ON DIPAK-SEN METHOD WHICHINCLUDES ADJUSTABLE TRIGLYCERIDE:VLDL CHOLESTEROL RATIO.THIS FACTOR VARIES BY MEASURED TRIGLYCERIDE AND NON-HDLCHOLESTEROL CONCENTRATIONS WITH INCREASED CALCULATED LDL SEENIN HIGHER TRIGLYCERIDE OR LOWER NON-HDL SPECIMENS. FOR MOREINFORMATION, SEE CLIENT ANNOUNCEMENT AT [email or web address] RISK RATIO LDL/HDL (test code = 2238) 3.07 RATIO <3.22 COMPREHENSIVE METABOLIC [id number] 07:23:38* Test Item Value Reference Range Interpretation Comme nts GLUCOSE (test code = 2217) 115 MG/DL 70-99 H BUN (test code = 2208) 9 MG/DL 6-20 CREATININE (test code = 2214) 0.63 MG/DL 0.60-1.30 eGFR (2020 CKD-EPI) (test code = 27378) 125 ML/MIN/1.73 >60 CALC BUN/CREAT (test code = 2235) 14 RATIO 6-28 SODIUM (test code = 223) 140 MEQ/L 133-146 POTASSIUM (test code = 2228) 4.4 MEQ/L 3.5-5.4 CHLORIDE (test code = 2215) 104 MEQ/L 95-107 CARBON DIOXIDE (test code = 2206) 23 MEQ/L 19-31 CALCIUM (test code = 220) 9.9 MG/DL 8.5-10.5 PROTEIN, TOTAL (test code = 2228) 7.6 G/DL 6.1-8.3 ALBUMIN (test code = 2200) 4.6 G/DL 3.5-5.2 CALC GLOBULIN (test code = 2240) 3.0 G/DL 1.9-3.7 CALC A/G RATIO (test code = 2233) 1.5 RATIO 1.0-2.6 BILIRUBIN, TOTAL (test code = 2206) 0.4 MG/DL <=1.2 ALKALINE PHOSPHATASE (test code = 2203) 109 U/L 40-112 AST (test code = 2218) 18 U/L 9-40 ALT (test code = 2219) 16 U/L 5-40 UNLESS OTHERWISE INDICATED, ALL TESTING PERFORMED AT [facility] [address] [place] [address] METER/RELAY CRAFTSMAN: CHANDRIKA CASANOVA M.D. [place] NUMBER [id number] [facility] [place]. [id number] CT ABDOMEN PELVIS W [id number] 07:34:50ABDOMEN AND PELVIS CT WITH INTRAVENOUS CONTRAST. CLINICAL INDICATIONS: ? Abdominal pain, acute, nonl ocalized EPIGASTRIC PAIN WITH RADIATION TO RIGHT COSTOPHRENIC REGION/UPPER BACK TECHNIQUE: ?Axial computed tomographic images of the abdomen and pelviswere performed after injection of intravenous contrast. Radiation dosereductions techniques were employed in accordance with ALARA principles. COMPARISON: ?None. FINDINGS: ? Visualized lung bases are clear. Gallbladder is present. No focal liver lesions are seen. Fatty infiltration versus perfusionvariant is seen along the fissure for the falciform ligament. The spleen, pancreas, and adrenal glands are unremarkable in appearance. The kidneys enhance symmetrically. There is no hydronephrosis. No calcifications in the bladder. Uterus is present. No adnexalabnormalities seen. No free fluid or free air. No dilated bowel loops to suggest obstruction.No evidence of acute diverticulitis. No evidence of acute appendicitis.Mild colonic diverticulosis. Stomach is distended with food debris. No obvious obstructing lesion. Visualized aorta is normal in course and caliber. No pelvic or abdominaladenopathy by CT criteria. Visualized bones showed nosuspicious lytic or blastic bone lesions. Thereare degenerative changes in the spine and pelvis.[facility] TEST 2024-09-29 05:31:00* Test Item Value Reference Range Interpretation Comme nts POCT PREG (test code = 1605) Negative On board controls acceptable with C Line (test code = 3574) Yes POCT PREG LOT # (test code = 3575) [id number] POCT PREG TEST DATE ( test code = 3576) 11/22/2025 Lab Interpretation (test cod e = 94502-7) Normal [facility] [id number] 02:56:00* Test Item Value Reference Range Interpretation Comme nts POCT PREG (test code = 1605) Negative On board controls acceptable with C Line (test code = 3574) Yes POCT PREG LOT # (test code = 3575) [id number] POCT PREG TEST DATE ( test code = 3576) 01/14/2025 Lab Interpretation (test cod e = 94328-2) Normal [facility] [id number] 15:46:53* Test Item Value Reference Range Interpretation Comme nts GLU FASTNG (test code = 9909944501) 99 mg/dL 70-110 Lab Interpretation (test cod e = 28206-7) Normal [facility] [id number] 15:46:53* Test Item Value Reference Range Interpretation Comme nts GLU FASTNG (test code = 7030152314) 99 mg/dL 70-110 Lab Interpretation (test cod e = 96408-3) Normal [facility] [id number] 15:46:53* Test Item Value Reference Range Interpretation Comme nts GLU FASTNG (test code = 6888898155) 99 mg/dL 70-110 Lab Interpretation (test cod e = 19042-4) Normal [facility] HospitalPOCT [id number] 16:42:00* Test Item Value Reference Range Interpretation Comme nts POCT PREG (test code = 1605) Negative On board controls acceptable with C Line (test code = 3574) Yes POCT PREG LOT # (test code = 3575) POCT PREG TEST DATE ( test code = 3576) [facility] with [id number] 10:31:35* Test Item Value Reference Range Interpretation Comme nts WBC (test code = 6690-2) 12.89 See_Comment H [Automated message] The system which generated this result transmitted reference range: 4.30 - 11.10 10*3/?L. The reference range was not used to interpret this result as normal/abnormal. RBC (test code = 789-8) 2.93 See_Comment L [Automated message] The system which generated this result transmitted reference range: 3.93 - 5.25 10*6/?L. The reference range was not used to interpret this result as normal/abnormal. HGB (test code = 718-7) 8.9 g/dL 11.6-15.0 L HCT (test code = 4544-3) 26.6 % 35.7-45.2 L MCV (test code = 787-2) 90.8 fL 80.6-95.5 MCH (test code = 785-6) 30.4 pg 25.9-32.8 MCHC (test code = 786-4) 33.5 g/dL 31.6-35.1 RDW-SD (test code = 56714-5) 48.7 fL 39.0-49.9 RDW-CV (test code = 788-0) 14.7 % 12.0-15.5 PLT (test code = 777-3) 183 See_Comment [Automated message] The system which generated this result transmitted reference range: 166 - 358 10*3/?L. The reference range was not used to interpret this result as normal/abnormal. MPV (test code = 74422-0) 11.5 fL 9.5-12.9 NRBC/100 WBC (test code = 5261148287) 0.0 See_Comment [Automated message] The system which generated this result transmitted reference range: 0.0 - 10.0 /100 WBCs. The reference range was not used to interpret this result as normal/abnormal. NRBC x10^3 (test code = 5499216463) See_Comment [Automated message] The system which generated this result transmitted reference range: 10*3/?L. The reference range was not used to interpret this result as normal/abnormal. GRAN MAT (NEUT) % (test code = 770-8) 81.0 % IMM GRAN % (test code = 1041769263) 0.60 % LYMPH % (test code = 736-9) 10.9 % MONO % (test code = 5905-5) 7.2 % EOS % (test code = 713-8) 0.1 % BASO % (test code = 706-2) 0.2 % GRAN MAT x10^3(ANC) (test code = 1700922140) 10.44 10*3/uL 1.88-7.09 H IMM GRAN x10^3 (test code = 6091214497) 0.08 10*3/uL 0.00-0.06 H LYMPH x10^3 (test code = 731-0) 1.40 10*3/uL 1.32-3.29 MONO x10^3 (test code = 742-7) 0.93 10*3/uL 0.33-0.92 H EOS x10^3 (test code = 711-2) 0.03-0.39 L BASO x10^3 (test code = 704-7) 0.03 10*3/uL 0.01-0.07 Lab Interpretation (test code = 46121-5) Abnormal [facility] GLUCOSE (AUTOMATED)2023-02-27 21:02:19* Test Item Value Reference Range Interpretation Comme nts POCT GLU (test code = 6137087292) 72 mg/dL 70-110 Lab Interpretation (test cod e = 36868-7) Normal [facility] GLUCOSE (AUTOMATED)2023-02-27 18:02:08* Test Item Value Reference Range Interpretation Comme nts POCT GLU (test code = 6037214113) 80 mg/dL 70-110 Lab Interpretation (test cod e = 82402-4) Normal [facility] GLUCOSE (AUTOMATED)2023-02-27 14:10:02* Test Item Value Reference Range Interpretation Comme nts POCT GLU (test code = 8758511958) 84 mg/dL 70-110 Lab Interpretation (test cod e = 94444-4) Normal [facility] GLUCOSE (AUTOMATED)2023-02-27 10:05:31* Test Item Value Reference Range Interpretation Comme nts POCT GLU (test code = 7923046393) 94 mg/dL 70-110 Lab Interpretation (test cod e = 70934-3) Normal [facility] OR EZIO ONLY - [id number] 09:51:49* Test Item Value Reference Range Interpretation Comme nts RPR (Qualitative) (test code = 54799-2) Nonreactive Nonreactive Lab Interpretation (test cod e = 81674-6) Normal [facility] GLUCOSE (AUTOMATED)2023-02-27 06:11:13* Test Item Value Reference Range Interpretation Comme nts POCT GLU (test code = 2883829621) 95 mg/dL 70-110 Lab Interpretation (test cod e = 03699-6) Normal [facility] Hospital[facility] Surface [id number] 05:47:51 * Test Item Value Reference Range Interpretation Comme nts HBsAg Semi-Quantitative (melita t code = 5195-3) 0.05 Negative [facility] GLUCOSE (AUTOMATED)2023-02-27 02:09:44* Test Item Value Reference Range Interpretation Comme nts POCT GLU (test code = 8691279558) 106 mg/dL 70-110 Lab Interpretation (test cod e = 17620-5) Normal [facility]2 AG-AB WITH [id number] 01:17:26* Test Item Value Reference Range Interpretation Comme nts HIV Semi-quantitative (test code = 95425-7) 0.11 Negative SANDRA (test code = SANDRA) Non-reactive for HIV-1 antigen and HIV-1/HIV-2 antibodies. ?No laboratory evidence of HIV infection. ?Repeat in 2-4 weeks if acute HIV infection is suspected. [facility] with [id number] 22:58:50* Test Item Value Reference Range Interpretation Comme nts WBC (test code = 6690-2) 8.18 See_Comment [Automated messa ge] The system which generated this result transmitted reference range: 4.30 - 11.10 10*3/?L. The reference range was not used to interpret this result as normal/abnormal. RBC (test code = 789-8) 3.81 See_Comment L [Automated messa ge] The system which generated this result transmitted reference range: 3.93 - 5.25 10*6/?L. The reference range was not used to interpret this result as normal/abnormal. HGB (test code = 718-7) 11.5 g/dL 11.6-15.0 L HCT (test code = 4544-3) 34.0 % 35.7-45.2 L MCV (test code = 787-2) 89.2 fL 80.6-95.5 MCH (test code = 785-6) 30.2 pg 25.9-32.8 MCHC (test code = 786-4) 33.8 g/dL 31.6-35.1 RDW-SD (test code = 46137-3) 47.0 fL 39.0-49.9 RDW-CV (test code = 788-0) 14.8 % 12.0-15.5 PLT (test code = 777-3) 237 See_Comment [Automated messa ge] The system which generated this result transmitted reference range: 166 - 358 10*3/?L. The reference range was not used to interpret this result as normal/abnormal. MPV (test code = 01946-6) 11.5 fL 9.5-12.9 NRBC/100 WBC (test code = 8419388010) 0.0 See_Comment [Automated [employer] ssage] The system which generated this result transmitted reference range: 0.0 - 10.0 /100 WBCs. The reference range was not used to interpret this result as normal/abnormal. NRBC x10^3 (test code = 5320173262) See_Comment [Automated messa ge] The system which generated this result transmitted reference range: 10*3/?L. The reference range was not used to interpret this result as normal/abnormal. GRAN MAT (NEUT) % (test code = 770-8) 78.4 % IMM GRAN % (test code = 2337496089) 0.50 % LYMPH % (test code = 736-9) 15.2 % MONO % (test code = 5905-5) 5.0 % EOS % (test code = 713-8) 0.7 % BASO % (test code = 706-2) 0.2 % GRAN MAT x10^3(ANC) (test code = 6549205628) 6.41 10*3/uL 1.88-7.09 IMM GRAN x10^3 (test code = 7352440549) 0.04 10*3/uL 0.00-0.06 LYMPH x10^3 (test code = 731-0) 1.24 10*3/uL 1.32-3.29 L MONO x10^3 (test code = 742-7) 0.41 10*3/uL 0.33-0.92 EOS x10^3 (test code = 711-2) 0.06 10*3/uL 0.03-0.39 BASO x10^3 (test code = 704-7) 0.01-0.07 Lab Interpretation (test code = 32436-6) Abnormal [facility] - ONCE [id number] 22:47:00 * Test Item Value Reference Range Interpretation Comme nts ABO & RH (test code = 20) O Positive IAT (test code = 1185) Negative [facility] GLUCOSE (AUTOMATED)2023-02-26 22:08:05* Test Item Value Reference Range Interpretation Comme nts POCT GLU (test code = 7168427048) 82 mg/dL 70-110 Lab Interpretation (test cod e = 97185-2) Normal [facility] GLUCOSE (AUTOMATED)2023-02-20 03:00:18* Test Item Value Reference Range Interpretation Comme nts POCT GLU (test code = 2223541279) 98 mg/dL 70-110 Lab Interpretation (test cod e = 13278-8) Normal [facility] URINALYSIS W/O SPECIFIC [id number] 18:51:00* Test Item Value Reference Range Interpretation Comme nts POCT PH U (test code = 3254) n/a 5-8 POCT U LEUK EST (test code = 3263) n/a Negative - Negative POCT U NIT (test code = 3262) n/a Negative - Negati ve POCT U PROT (test code = 3259) negative Negative - Negat adarsh POCT U GLU (test code = 3256) negative Negative - Negati ve POCT U KETONE (test code = 3258) n/a Negative - Neg ative POCT U BLD (test code = 3257) n/a Negative - Negati ve [facility] URINALYSIS W/O SPECIFIC [id number] 18:14:00* Test Item Value Reference Range Interpretation Comme nts POCT PH U (test code = 3254) N/A 5-8 POCT U LEUK EST (test code = 3263) N/A Negative - Negative POCT U NIT (test code = 3262) N/A Negative - Negati ve POCT U PROT (test code = 3259) Negative Negative - Negat adarsh POCT U GLU (test code = 3256) Negative Negative - Negati ve POCT U KETONE (test code = 3258) N/A Negative - Neg ative POCT U BLD (test code = 3257) N/A Negative - Negati ve [facility] URINALYSIS W/O SPECIFIC [id number] 18:44:00* Test Item Value Reference Range Interpretation Comme nts POCT PH U (test code = 3254) n/a 5-8 POCT U LEUK EST (test code = 3263) n/a Negative - Negative POCT U NIT (test code = 3262) n/a Negative - Negati ve POCT U PROT (test code = 3259) negative Negative - Negat adarsh POCT U GLU (test code = 3256) negative Negative - Negati ve POCT U KETONE (test code = 3258) n/a Negative - Neg ative POCT U BLD (test code = 3257) n/a Negative - Negati ve [facility] URINALYSIS W/O SPECIFIC [id number] 14:14:00* Test Item Value Reference Range Interpretation Comme nts POCT PH U (test code = 3254) n/a 5-8 POCT U LEUK EST (test code = 3263) n/a Negative - Negative POCT U NIT (test code = 3262) n/a Negative - Negati ve POCT U PROT (test code = 3259) negative Negative - Negat adarsh POCT U GLU (test code = 3256) negative Negative - Negati ve POCT U KETONE (test code = 3258) n/a Negative - Neg ative POCT U BLD (test code = 3257) n/a Negative - Negati ve [facility] URINALYSIS W/O SPECIFIC [id number] 22:33:00* Test Item Value Reference Range Interpretation Comme nts POCT PH U (test code = 3254) N/A 5-8 POCT U LEUK EST (test code = 3263) N/A Negative - Negative POCT U NIT (test code = 3262) N/A Negative - Negati ve POCT U PROT (test code = 3259) NEGATIVE Negative - Negat adarsh POCT U GLU (test code = 3256) NEGATIVE Negative - Negati ve POCT U KETONE (test code = 3258) N/A Negative - Neg ative POCT U BLD (test code = 3257) N/A Negative - Negati ve [facility] URINALYSIS W/O SPECIFIC [id number] 19:05:00* Test Item Value Reference Range Interpretation Comme nts POCT PH U (test code = 3254) n/a 5-8 POCT U LEUK EST (test code = 3263) n/a Negative - Negative POCT U NIT (test code = 3262) n/a Negative - Negati ve POCT U PROT (test code = 3259) negative Negative - Negat adarsh POCT U GLU (test code = 3256) negative Negative - Negati ve POCT U KETONE (test code = 3258) n/a Negative - Neg ative POCT U BLD (test code = 3257) n/a Negative - Negati ve [facility] URINALYSIS W/O SPECIFIC [id number] 15:35:00* Test Item Value Reference Range Interpretation Comme nts POCT PH U (test code = 3254) n/a 5-8 POCT U LEUK EST (test code = 3263) n/a Negative - Negative POCT U NIT (test code = 3262) n/a Negative - Negati ve POCT U PROT (test code = 3259) positive Negative - Negat adarsh POCT U GLU (test code = 3256) negative Negative - Negati ve POCT U KETONE (test code = 3258) n/a Negative - Neg ative POCT U BLD (test code = 3257) n/a Negative - [facility] [id number] 21:08:00* Test Item Value Reference Range Interpretation Comme nts POCT PH U (test code = 3254) n/a 5-8 POCT U LEUK EST (test code = 3263) n/a Negative - Negative POCT U NIT (test code = 3262) n/a Negative - Negati ve POCT U PROT (test code = 3259) positive Negative - Negat adarsh POCT U GLU (test code = 3256) positive Negative - Negati ve POCT U KETONE (test code = 3258) n/a Negative - Neg ative POCT U BLD (test code = 3257) n/a Negative - Negati ve [facility] Notes Date/Time Note Provider Source 2025-05-01 15:10:57 Images from the original note were not included. Luz Contreras PA-C MIDLEVEL PROVIDER Specialty: PHYSICIAN DOCTOR OF PHARMACY Creation Time: 04/28/2025 12:33 PM Please let her know that orlistat is over the counter. Over there counter is 60mg, which she can do TID with meals containing fat. The prescription dose is 120mg TID but at least we can try the otc 60mg TID if not too expensive for her. Message sent to patient via [employer] Apoorva Sibley MA [facility] 2025-05-01 15:10:16 Please let her know that orlistat is over the counter. Over there counter is 60mg, which she can do TID with meals containing fat. The prescription dose is 120mg TID but at least we can try the otc 60mg TID if not too expensive for her. T [facility] 2025-04-29 17:01:02 MyChart message sent relaying information Per PCP. Joellen Angelo RN [facility] 2025-04-29 15:20:22 We can either send a different medication but as you stated, its not going to be covered. Our you can purchase the orlistat (Carlos A) over the counter. T [facility] 2025-04-29 14:26:39 Please review and advise. Insurance dose not have alternatives they will cover. [facility] 2025-04-28 12:33:50 Please let her know that orlistat is over the counter. Over there counter is 60mg, which she can do TID with meals containing fat. The prescription dose is 120mg TID but at least we can try the otc 60mg TID if not too expensive for her. [facility] 2025-04-28 11:09:44 PA initiated on Cover my meds Cassidy:[id number] Message from [employer]: Drug is not covered by plan Pt has been notified and encouraged to contact insurance for alternative covered medications. Pt verbally acknowledged understanding said she would f/u with office. T [facility] 2025-04-28 09:00:00 Addended by: LUZ CONTRERAS PA-C on: 04/29/2025 07:05 PM Modules accepted: Orders T [facility] 2025-02-07 10:15:00 Images from the original note were not included. Venipuncture collection performed by clean technique on the left anticubitus. Total of 1 attempts were made. Slight pressure and a bandage/dressing were applied to the site(s). The patient experienced no complications. The following specimens were processed according to instructions and sent to [facility] laboratories per lab order on 02/07/2025 : LT BLUE SST 1 RED LAV 2 PPT DK GREEN (LiHep) DK GREEN (SodH) MAY DK BLUE (K2) DK BLUE (S) ACD Blood Culture NIPT/NTD T [facility] 2024-09-29 02:10:32 Awake, alert oriented X4, respirations even and unlabored,skin w/d, color appropriate for race, moves all ext well, pt encouraged to follow up with pcp and or return as needed. Pt given printed and verbal discharge instructions regarding epigastric abdominal pain and hyperglycemia. Patient verbalized understanding and signature obtained, patient denies any other concerns. Prescriptions provided. Advised to seek medical attention for new/prolonged/worsening of symptoms. No adverse reaction to meds given in ER noted upon discharge. Pt ambulated to the [facility] with steady gait. ELA Cameron RN [facility] 2024-09-28 23:20:00 Pt states she was woke up with epigastric pain that radiates to the back, pt states the pain is burning pain. 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 Pain is localized to epigastrium with radiation to right costovertebral region and to back. Has nausea. No vomiting. Pt had eaten greasy food prior to onset of symptoms. No fever or chills. Initially pain was a 10/10 but now a 7/10 History provided by: Medical records, patient and relative spanish interpreter/translator used: No Abdominal Pain Pain location: Epigastric Pain quality: aching Pain radiates to: Back Pain severity: Severe Onset quality: Sudden Duration: 1 hour Timing: Constant Progression: Improving Chronicity: New Context: eating Context: not alcohol use, not diet changes, not medication withdrawal, not previous surgeries, not recent illness, not recent travel, not retching, not sick contacts, not suspicious food intake and not trauma Relieved by: None tried Worsened by: Nothing Ineffective treatments: None tried Associated symptoms: nausea Associated symptoms: no chest pain, no chills, no constipation, no diarrhea, no fever and no vomiting Risk factors: obesity Risk factors: no aspirin use, not elderly, not and no recent hospitalization Past Medical History/Immunizations: Past Medical History: Diagnosis Date Anemia in , delivered, current hospitalization 02/28/2023 Depression with anxiety 05/30/2023 Diet controlled gestational diabetes mellitus (GDM), antepartum 12/18/2022 Tetanus received in last 5 years: Yes Childhood immunizations: Up-to-date Allergies: No Known Allergies Past Social History: Tobacco Use Never smoked or used smokeless tobacco. Vaping Use Never used Alcohol Use Not Currently. Drug Use Never. Sexual Activity Sexually active; Partners: Male; Control/Protection: None, Injection. Past Surgical History: History reviewed. No pertinent surgical history. Review of Systems: Review of Systems Constitutional: Negative. Negative for chills and fever. HENT: Negative. Eyes: Negative. Respiratory: Negative. Breasts: Negative. Cardiovascular: Negative. Negative for chest pain. Gastrointestinal: Positive for abdominal pain and nausea. Negative for abdominal distention, anal bleeding, constipation, diarrhea and vomiting. Genitourinary: Negative. Musculoskeletal: Negative. Skin: Negative. Neurological: Negative. Psychiatric/Behavioral: Negative. All other systems reviewed and are negative. Endocrine: Endocrine negative Physical Exam: ED Triage Vitals [09/28/24 2320] Weight 99.8 kg (220 lb) Actual or estimated Actual Height 1.626 m (5' 4") BP 136/88 Pulse 98 Resp 18 Temp 36.7 ?C (98 ?F) Temp source Oral SpO2 99 % Measured on Room air Physical Exam Vitals and nursing note reviewed. Constitutional: General: She is not in acute distress. Appearance: Normal appearance. She is well-developed. She is obese. She is not ill-appearing, toxic-appearing or diaphoretic. HENT: Head: Normocephalic and atraumatic. Nose: Nose normal. No congestion or rhinorrhea. Mouth/Throat: Mouth: Mucous membranes are moist. Pharynx: Oropharynx is clear. No oropharyngeal exudate or posterior oropharyngeal erythema. Eyes: General: No scleral icterus. Right eye: No discharge. Left eye: No discharge. Extraocular Movements: Extraocular movements intact. Conjunctiva/sclera: Conjunctivae normal. Pupils: Pupils are equal, round, and reactive to light. Neck: Thyroid: No thyromegaly. Cardiovascular: Rate and Rhythm: Normal rate and regular rhythm. Pulses: Normal pulses. Heart sounds: Normal heart sounds. No murmur heard. Pulmonary: Effort: Pulmonary effort is normal. No respiratory distress. Breath sounds: Normal breath sounds. No stridor. No wheezing, rhonchi or rales. Chest: Chest wall: No tenderness. Abdominal: General: Abdomen is flat. Bowel sounds are normal. There is no distension. Palpations: Abdomen is soft. There is no mass. Tenderness: There is no abdominal tenderness. There is no right CVA tenderness, left CVA tenderness, guarding or rebound. Hernia: No hernia is present. Musculoskeletal: General: No swelling, tenderness, deformity or signs of injury. Normal range of motion. Cervical back: Normal range of motion and neck supple. No rigidity or tenderness. Lymphadenopathy: Cervical: No cervical adenopathy. Skin: General: Skin is warm and dry. Capillary Refill: Capillary refill takes less than 2 seconds. Coloration: Skin is not jaundiced or pale. Findings: No bruising, erythema, lesion or rash. Neurological: General: No focal deficit present. Mental Status: She is alert and oriented to person, place, and time. Cranial Nerves: No cranial nerve deficit. Sensory: No sensory deficit. Motor: No weakness or abnormal muscle tone. Coordination: Coordination normal. Gait: Gait normal. Deep Tendon Reflexes: Reflexes normal. Psychiatric: Behavior: Behavior normal. Thought Content: Thought content normal. Judgment: Judgment normal. Radiology: CT ABDOMEN PELVIS W CONTRAST Final Result ABDOMEN AND PELVIS CT WITH INTRAVENOUS CONTRAST. CLINICAL INDICATIONS: Abdominal pain, acute, nonlocalized EPIGASTRIC PAIN WITH RADIATION TO RIGHT COSTOPHRENIC REGION/UPPER BACK TECHNIQUE: Axial computed tomographic images of the abdomen and pelvis were performed after injection of intravenous contrast. Radiation dose reductions techniques were employed in accordance with ALARA principles. COMPARISON: None. FINDINGS: Visualized lung bases are clear. Gallbladder is present. No focal liver lesions are seen. Fatty infiltration versus perfusion variant is seen along the fissure for the falciform ligament. The spleen, pancreas, and adrenal glands are unremarkable in appearance. The kidneys enhance symmetrically. There is no hydronephrosis. No calcifications in the bladder. Uterus is present. No adnexal abnormalities seen. No free fluid or free air. No dilated bowel loops to suggest obstruction. No evidence of acute diverticulitis. No evidence of acute appendicitis. Mild colonic diverticulosis. Stomach is distended with food debris. No obvious obstructing lesion. Visualized aorta is normal in course and caliber. No pelvic or abdominal adenopathy by CT criteria. Visualized bones showed no suspicious lytic or blastic bone lesions. There are degenerative changes in the spine and pelvis. IMPRESSION 1. Distended stomach, correlate for evidence of delayed gastric emptying. 2. Otherwise no acute CT abnormality of the abdomen and pelvis. 3. Mild colonic diverticulosis, no acute diverticulitis. RL: [id number] AFC [id number] End of report Lab Results: Lab Results CBC WITH DIFF - Abnormal Result Value Ref Range WBC 7.36 4.30 - 11.10 10*3/?L RBC 4.72 3.93 - 5.25 10*6/?L HGB 14.2 11.6 - 15.0 g/dL HCT 40.1 35.7 - 45.2 % MCV 85.0 80.6 - 95.5 fL MCH 30.1 25.9 - 32.8 pg MCHC 35.4 (*) 31.6 - 35.1 g/dL RDW-SD 36.7 (*) 39.0 - 49.9 fL RDW-CV 11.9 (*) 12.0 - 15.5 % PLT 278 166 - 358 10*3/?L MPV 10.1 9.5 - 12.9 fL NRBC/100 WBC 0.0 0.0 - 10.0 /100 WBCs NRBC x10 3 <0.01 10*3/?L GRAN MAT (NEUT) % 56.7 % IMM GRAN % 0.10 % LYMPH % 33.0 % MONO % 7.5 % EOS % 2.3 % BASO % 0.4 % GRAN MAT x10 3 (ANC) 4.17 1.88 - 7.09 10*3/uL IMM GRAN x10 3 <0.03 0.00 - 0.06 10*3/uL LYMPH x10 3 2.43 1.32 - 3.29 10*3/uL MONO x10 3 0.55 0.33 - 0.92 10*3/uL EOS x10 3 0.17 0.03 - 0.39 10*3/uL BASO x10 3 0.03 0.01 - 0.07 10*3/uL COMP. METABOLIC PANEL (53596) - Abnormal NA 136 135 - 145 mmol/L K 4.0 3.5 - 5.0 mmol/L CL 105 98 - 108 mmol/L CO2 TOTAL 20 (*) 23 - 31 mmol/L AGAP 11 2 - 16 BUN 12 7 - 23 mg/dL GLUCOSE 203 (*) 70 - 110 mg/dL CREATININE 0.68 0.50 - 1.04 mg/dL TOTAL BILI 0.3 0.1 - 1.1 mg/dL CALCIUM 9.1 8.6 - 10.6 mg/dL T PROTEIN 7.5 6.3 - 8.2 g/dL ALBUMIN 4.4 3.5 - 5.0 g/dL ALK PHOS 125 (*) 34 - 122 U/L ALTv 18 5 - 35 U/L AST(SGOT) 21 13 - 40 U/L eGFR 123.4 mL/min/1.73m2 POCT TEST - Normal POCT PREG Negative On board controls acceptable with C Line Yes POCT PREG LOT # [id number] POCT PREG TEST DATE 11/22/2025 LIPASE - Normal LIPASE 168 0 - 220 U/L Orders and Treatments: Orders Placed This Encounter Procedures CT ABDOMEN PELVIS W CONTRAST POCT TEST Cbc with Diff Comp. Metabolic Panel (05931) Lipase Orders Placed This Encounter Medications ketorolac (TORADOL) injection 30 mg ondansetron (ZOFRAN (PF)) injection 4 mg iopamidol (ISOVUE 370-500 mL) injection 80 mL ketorolac 10 mg tablet ondansetron (ZOFRAN) 4 mg tablet First Provider Eval: ED Events Date/Time Event User Comments 09/28/242323 Medical Screening Begins RADAMES MORRIS MD -- 09/28/242323 First Provider Evaluation RADAMES MORRIS MD -- ED COURSE Diagnosis/Impression as of 09/29/24 0149 Epigastric abdominal pain Hyperglycemia Procedures: Procedures MDM: Medical Decision Making Kathleen Alvares is a 24 year old female who presents to the ED with epigastric pain Problems Addressed: Epigastric abdominal pain: acute illness or injury Hyperglycemia: undiagnosed new problem with uncertain prognosis Details: Pt is known "Prediabetic" Amount and/or Complexity of Data Reviewed Labs: ordered. Decision-making details documented in ED Course. Radiology: ordered. Decision-making details documented in ED Course. Risk OTC drugs. Prescription drug management. Risk Details: Will refer to [facility] GI Flowsheet Documentation: Scoring Tools: No data recorded Disposition/Condition: ED Disposition ED Disposition Discharge Condition Stable Comment -- Discharge Medications: Patient's Medications START taking these medications KETOROLAC 10 MG TABLET Take 1 tablet by mouth every 6 (six) hours as needed for Pain (scale 7-10). ONDANSETRON (ZOFRAN) 4 MG TABLET Take 1 tablet by mouth every 8 (eight) hours as needed for Nausea and Vomiting (N/V). CONTINUE taking these medications which have NOT CHANGED FERROUS SULFATE (IRON, FERROUS SULFATE,) 325 MG (65 MG IRON) TABLET Take 1 tablet by mouth in the morning. FLUOXETINE 20 MG TABLET Take 1 tablet by mouth in the morning. PHENTERMINE 37.5 MG CAPSULE Take 1 capsule by mouth every morning. PNV NO.95/FERROUS FUM/FOLIC AC ( ORAL) Take by mouth. SEMAGLUTIDE (OZEMPIC) 0.25 MG OR 0.5 MG(2 MG/1.5 ML) PNIJ inject under the skin. TRIAMCINOLONE [id number] OIN 0.025-6-0.05 % TOPICAL CREAM Apply to area(s) at bedtime. START taking Modified Medications as Prescribed No medications on file STOP taking these medications No medications on file Follow-up: Contact information for follow-up [facility] Specialty: Gastroenterology [address] [facility] [id number] Electronically signed by: Radames Morris MD 09/29/24 0149 [facility] 2023-07-23 08:51:08 Formatting of this n ote might be different from the original. PA received, PA sent through covermymeds, waiting for determination. Alissa Lawrence RN [facility]
[2025-09-03] MEDS ORDERED: FAMOTIDINE 20 MG/2 ML VIAL IV ONE (00:47)
[2025-09-03] MEDS ORDERED: LORazepam 2 MG/ML VIAL ONE (00:47)
[2025-09-03] MEDS ORDERED: MAGNES/ALUMIN/SIMET 30ML UCUP ONE (00:48)
[2025-09-03 01:00] LABS: Absolute Lymphocytes (CBC) 2.4 K/uL (0.7-4.9); Hematocrit 40.6 % (36.0-45.0); Hemoglobin 14.2 g/dL (12.0-15.0); MCH 29.7 pg (27.0-35.0); MCHC 35.0 g/dL (32.0-36.0); MCV 84.8 fL (80-100); MPV 8.5 fL (7.6-11.3); Nucleated RBC Absolute Count 0.0 (0-0); Nucleated Red Blood Cells % 0.2 % (0-0); RBC Red Blood Cell Count 4.78 M/uL (3.86-4.86); White Blood Count 8.20 thou/uL (4.3-10.9)
[2025-09-03] MEDS ORDERED: KETOROLAC 30 MG/ML INJ ONE (01:13)
[2025-09-03 01:20] LABS: ALT/SGPT 33 U/L (13-56); AST/SGOT 14 U/L (15-37); Albumin 3.7 g/dL (3.4-5.0); Albumin/Globulin Ratio 0.9 (1.1-1.8); Alkaline Phosphatase 99 U/L (45-117); Anion Gap 9.5 mEq/L (5.0-15.0); BUN Blood Urea Nitrogen 13 mg/dL (7-18); Globulin 3.9 g/dL (2.3-3.5); Glucose Level 140 mg/dL (74-106); Lipase 33 U/L (13-75); Potassium 3.5 mEq/L (3.5-5.1)
[2025-09-03 01:21] LABS: Troponin High Sensitivity < 3.0 pg/mL (<58.9)
--- NOTE | 2025-09-03 01:51 | EDPHYS ---
Physician Documentation [facility] Name: Kathleen Saunders Age: 25 yrs Sex: Female : 2000 Arrival Date: 09/03/2025 Time: 00:05 Bed 13 Private MD: ED Physician Luan Wilson HPI: 09/03 02:30 This 25 yrs old Female presents to ER via Ambulatory with complaints of Chest tt7 Pain. 02:30 Patient reports epigastric abdominal pain that radiates to her chest and into her back, tt7 the pain started 3 hours prior to arrival, is moderate in severity, no exacerbating or alleviating factors, patient has history of anxiety and GERD. Historical: - Allergies: 00:12 No Known Allergies; ha1 - PMHx: 00:12 Anxiety; Gastric reflux; ha1 - Immunization history:: Adult Immunizations up to date. - Infectious Disease History:: Denies. - Social history:: Smoking status: Patient denies any tobacco usage or history of. ROS: 02:31 Constitutional: negative for fever. tt7 02:31 Cardiovascular: Positive for chest pain, 02:31 Respiratory: Negative for cough, shortness of breath, 02:31 Abdomen/GI: Positive for abdominal pain, Negative for vomiting, 02:32 Skin: negative for rash. Neuro: negative for focal weakness. tt7 Exam: 02:32 Constitutional: vital signs reviewed, well appearing. Head/Face: normocephalic, tt7 atraumatic. Eyes: no conjunctival injection, anicteric sclerae. ENT: mucus membranes moist. Neck: trachea midline, no JVD, no meningismus. Chest/axilla: normal chest wall appearance and motion, nontender, no crepitus. Cardiovascular: regular rate and rhythm, no murmurs, no rubs, no lower extremity edema. Respiratory: normal respiratory effort, no accessory muscle use, lungs CTAB. Abdomen/GI: soft, nondistended, mild epigastric tenderness, no guarding or rebound, negative De La Rosa's sign, no McBurney point tenderness. Back: normal ROM. Skin: warm, dry, intact, normal turgor, normal color, no rash. MS/ Extremity: normal ROM of extremities, no gross deformities. Neuro: alert and oriented with appropriate mental status, normal speech, follows commands, no focal neurologic deficits. Psych: Anxious Vital Signs: 00:05 BP 159 / 84; Pulse 96; Resp 18 S; Temp 98.3; Pulse Ox 100% ; Weight 104.33 kg; Height 5 ha1 ft. 4 in. ; 01:52 BP 128 / 91; Resp 16; Pulse Ox 98% ; Pain 4/10; kt5 02:18 BP 140 / 88; Pulse 85; Resp 16; Temp 98.8; Pulse Ox 99% ; Pain 4/10; kt5 00:05 Body Mass Index 39.48 (104.33 kg, 162.56 cm) ha1 01:52 Pain Scale: Adult kt5 02:18 Pain Scale: Adult kt5 MDM: 00:13 Medical Screening Exam initiated tt7 01:41 Differential diagnosis: abnormal EKG, acute myocardial infarction, anxiety, chest wall tt7 pain, costochondritis, gastritis, gastroesophageal reflux disease (GERD), pancreatitis, pneumonia, pneumothorax, pulmonary embolus. HEART Score: History: Slightly Suspicious (0), ECG: Normal (0), Age: < or = 45 years (0), Risk Factors: No Risk Factors Known (0), Troponin: < or = 1 x Normal Limit (0), Total Score = 0. Data reviewed: vital signs, nurses notes, lab test result(s), EKG, radiologic studies. ED course: I independently interpreted the patient's chest x-ray. On my interpretation, chest x-ray demonstrates no radiographic evidence of acute cardiopulmonary disease. 02:24 ED course: I independently interpreted the patient's EKG performed on 09/03/2025 at tt7 0033. On my interpretation, EKG demonstrates normal sinus rhythm, ventricular rate 71 bpm, normal axis, normal QRS interval, normal ST segments, no STEMI. 02:35 ED course: Well-appearing female with epigastric pain that radiates to the chest, vital tt7 signs are stable, physical exam reassuring, standard cardiac evaluation ordered, very low suspicion for ACS, workup overall reassuring, nonischemic EKG, normal chest x-ray, reassuring laboratory studies, patient was treated with IV Ativan, Maalox, IV Toradol, and IV Pepcid, she was reassessed and her symptoms improved, after completion of the patient's emergency department evaluation, I do not suspect a life-threatening or disabling process. Patient is medically stable and not in need of emergent medical intervention. I had a detailed discussion with the patient regarding the historical points, exam findings, emergency department evaluation, diagnostic results, and the discharge diagnosis. I instructed the patient on outpatient management of their condition. I discussed the need for outpatient follow-up with a primary care physician. I informed the patient on return precautions, including the need to return to the ED if symptoms do not improve, worsen, or if there are any questions or concerns that arise at home. The patient was discharged in stable condition. 09/03 00:14 Order name: CBC with Diff; Complete Time: 09/03 00:14 Order name: CMP; Complete Time: 09/03 00:14 Order name: Lipase; Complete Time: 09/03 00:14 Order name: Troponin HS; Complete Time: 09/03 00:14 Order name: Test, Serum; Complete Time: 09/03 00:14 Order name: XRAY Chest (1 view) 09/03 00:14 Order name: IV Saline Lock; Complete Time: 0009/03 00:14 Order name: Labs collected and sent; Complete Time: 0009/03 00:14 Order name: Cardiac monitoring; Complete Time: 09/03 00:14 Order name: EKG - Nurse/Tech; Complete Time: 09/03 00:14 Order name: O2 Per Protocol; Complete Time: 0009/03 00:14 Order name: O2 Sat Monitoring; Complete Time: 00: tt Administered Medications: 01:02 Drug: Alum-Mag Hydroxide-Simeth PO Suspension (200 mg-200 mg-20 mg/5 mL) 30 ml PO once kt5 Route: PO; 01:58 Follow up: Response: No adverse reaction; No change in condition kt5 01:58 Follow up: Response: No adverse reaction; No change in condition kt5 01:03 Drug: Famotidine IVP 20 mg IVP once; dilute with 10 mL 0.9% NaCl; give over 2 minutes kt5 Route: IVP; Site: right antecubital; 01:59 Follow up: Response: No adverse reaction; No change in condition kt5 01:03 Drug: Ativan IVP 0.5 mg IVP once Route: IVP; Site: right antecubital; kt5 01:58 Follow up: Response: No adverse reaction; No change in condition kt5 01:18 Drug: Ketorolac IVP 15 mg IVP once Route: IVP; Site: right antecubital; kt5 01:58 Follow up: Response: No adverse reaction; Pain is decreased kt5 Disposition: 02:36 Co-signature as Attending Physician, Luan Wilson DO. tt7 Disposition Summary: 09/03/25 01:51 Discharge Ordered Notes: Location: Home tt7 Problem: new tt7 Symptoms: have improved tt7 Condition: Stable tt7 Diagnosis - Chest pain, unspecified tt7 - Epigastric pain tt7 Followup: tt7 - With: Emergency Department - When: As needed - Reason: Followup: tt7 - With: Private Physician - When: 1 - 2 days - Reason: Recheck today's complaints, Re-evaluation by your physician Discharge Instructions: - Discharge Summary Sheet tt7 - Abdominal Pain, Adult, [id number] tt7 - Nonspecific Chest Pain, Adult, [id number] tt7 Forms: - Medication Reconciliation Form tt7 - Antibiotic Education tt7 - Prescription Opioid Use tt7 - Patient Portal Instructions tt7 - Leadership Thank You Letter tt7 Signatures: Dispatcher [employer] Radha Hair RN RN ha1 Yojana Abbott RN RN kt5 Luan Wilson DO DO tt7 Corrections: (The following items were deleted from the chart) 01:48 01:41 ED course: lll. tt7 tt7
--- NOTE | 2025-09-03 01:51 | ER ---
Nurse's Notes [facility] Name: Kathleen Saunders Age: 25 yrs Sex: Female : 2000 Arrival Date: 09/03/2025 Time: 00:05 Bed 13 Private MD: Diagnosis: Chest pain, unspecified;Epigastric pain Presentation: 09/03 00:05 Chief complaint: Patient states: MID EPIGASTRIC PAIN THAT RADIATES TO THE BACK. ha1 00:05 Coronavirus screen: Client denies travel out of the [place] in the last 14 days. Ebola ha1 Screen: No symptoms or risks identified at this time. Initial Sepsis Screen: Does the patient meet any 2 criteria? No. Patient's initial sepsis screen is negative. Does the patient have a suspected source of infection? No. Patient's initial sepsis screen is negative. Risk Assessment: Do you want to hurt yourself or someone else? Patient reports no desire to harm self or others. Onset of symptoms was September 03, 2025. 00:05 Method Of Arrival: Ambulatory ha1 00:05 Acuity: RASHARD 3 ha1 Triage Assessment: 00:12 General: Appears uncomfortable, Behavior is cooperative, anxious. Pain: Complains of ha1 pain in epigastric area Pain currently is 10 out of 10 on a pain scale. Quality of pain is described as aching. Neuro: Level of Consciousness is awake, alert, obeys commands, Oriented to person, place, time, situation. Cardiovascular: Capillary refill < 3 seconds Patient's skin is warm and dry. Respiratory: Airway is patent Respiratory effort is even, unlabored, Respiratory pattern is regular, symmetrical. GI: Abdomen is round obese, Reports epigastric pain. Historical: - Allergies: 00:12 No Known Allergies; ha1 - PMHx: 00:12 Anxiety; Gastric reflux; ha1 - Immunization history:: Adult Immunizations up to date. - Infectious Disease History:: Denies. - Social history:: Smoking status: Patient denies any tobacco usage or history of. Screenin:51 [facility] ED Fall Risk Assessment (Adult) History of falling in the last 3 months, kt5 including since admission No falls in past 3 months (0 pts) Confusion or Disorientation No (0 pts) Intoxicated or Sedated No (0 pts) Impaired Gait No (0 pts) Mobility Assist Device Used No (0 pt) Altered Elimination No (0 pt) Score/Fall Risk Level 0 - 2 = Low Risk Oriented to surroundings, Maintained a safe environment. Abuse screen: Denies threats or abuse. Nutritional screening: No deficits noted. Tuberculosis screening: No symptoms or risk factors identified. Assessment: 00:51 General: Appears in no apparent distress. uncomfortable, Behavior is calm, cooperative, kt5 appropriate for age. Pain: Complains of pain in chest Pain radiates to back Pain currently is 10 out of 10 on a pain scale. Quality of pain is described as radiating, sharp, Pain began 2 hours ago. Is continuous. Neuro: No deficits noted. Davis Agitation-Sedation Scale (RASS): 0 - Alert and Calm Level of Consciousness is awake, alert, obeys commands, Oriented to person, place, time, situation. Cardiovascular: Reports chest pain, Heart tones S1 S2 present Capillary refill < 3 seconds Clubbing of nail beds is absent JVD is absent Pulses are all present. Edema is absent. Respiratory: Airway is patent Trachea midline Respiratory effort is even, unlabored, Respiratory pattern is regular, symmetrical, Denies cough, shortness of breath. GI: No deficits noted. No signs and/or symptoms were reported involving the gastrointestinal system. Abdomen is round non-distended, Bowel sounds present X 4 quads. Abd is soft X 4 quads Abdomen is tender to palpation in epigastric area Patient currently denies nausea, vomiting. : No deficits noted. No signs and/or symptoms were reported regarding the genitourinary system. 01:52 Reassessment: Patient appears in no apparent distress at this time. No changes from kt5 previously documented assessment. Patient and/or family updated on plan of care and expected duration. Pain level reassessed. Patient is alert, oriented x 3, equal unlabored respirations, skin warm/dry/pink. Patient states feeling better. Patient states symptoms have improved. 02:18 Reassessment: Patient appears in no apparent distress at this time. No changes from kt5 previously documented assessment. Patient and/or family updated on plan of care and expected duration. Pain level reassessed. Patient is alert, oriented x 3, equal unlabored respirations, skin warm/dry/pink. Patient states feeling better. Patient states symptoms have improved. Vital Signs: 00:05 BP 159 / 84; Pulse 96; Resp 18 S; Temp 98.3; Pulse Ox 100% ; Weight 104.33 kg; Height 5 ha1 ft. 4 in. ; 01:52 BP 128 / 91; Resp 16; Pulse Ox 98% ; Pain 4/10; kt5 02:18 BP 140 / 88; Pulse 85; Resp 16; Temp 98.8; Pulse Ox 99% ; Pain 4/10; kt5 00:05 Body Mass Index 39.48 (104.33 kg, 162.56 cm) ha1 01:52 Pain Scale: Adult kt5 02:18 Pain Scale: Adult kt5 ED Course: 00:09 Patient arrived in ED. gm2 00:12 Triage completed. ha1 00:13 Luan Wilson DO is Attending Physician. tt7 00:21 Mitchell Salazar PA-C is PHCP. cp 00:23 Nicole Ontiveros, CHAO is Primary Nurse. kj2 00:51 No provider procedures requiring assistance completed. kt5 00:51 Patient has correct armband on for positive identification. Bed in low position. Call kt5 light in reach. Side rails up X 1. Adult w/ patient. Client placed on continuous cardiac and pulse oximetry monitoring. NIBP monitoring applied. bell person on. Door closed. Noise minimized. Warm blanket given. Pillow given. Family accompanied patient. 00:53 Inserted saline lock: 20 gauge in right antecubital area, using aseptic technique. hw Blood collected. Flushed with 10 mL NS. 00:54 EKG done, by ED staff, reviewed by Luan Wilson DO. hw 01:04 Troponin HS Sent. kt5 01:18 Test, Serum Sent. kt5 01:25 XRAY Chest (1 view) In Process Unspecified. EDMS 02:18 IV discontinued, intact, bleeding controlled, No redness/swelling at site. Pressure kt5 dressing applied. 02:18 Provided Education on: follow up and meds. kt5 Administered Medications: 01:02 Drug: Alum-Mag Hydroxide-Simeth PO Suspension (200 mg-200 mg-20 mg/5 mL) 30 ml PO once kt5 Route: PO; 01:58 Follow up: Response: No adverse reaction; No change in condition kt5 01:58 Follow up: Response: No adverse reaction; No change in condition kt5 01:03 Drug: Famotidine IVP 20 mg IVP once; dilute with 10 mL 0.9% NaCl; give over 2 minutes kt5 Route: IVP; Site: right antecubital; 01:59 Follow up: Response: No adverse reaction; No change in condition kt5 01:03 Drug: Ativan IVP 0.5 mg IVP once Route: IVP; Site: right antecubital; kt5 01:58 Follow up: Response: No adverse reaction; No change in condition kt5 01:18 Drug: Ketorolac IVP 15 mg IVP once Route: IVP; Site: right antecubital; kt5 01:58 Follow up: Response: No adverse reaction; Pain is decreased kt5 Medication: 00:51 VIS not applicable for this client. kt5 Outcome: 01:51 Discharge ordered by . tt7 02:18 Discharged to home ambulatory, with family, kt5 02:18 Condition: improved 02:18 Discharge instructions given to patient, family, Instructed on discharge instructions, follow up and referral plans. Demonstrated understanding of instructions, follow-up care, medications, Prescriptions given X 2, 02:45 Patient left the ED. kt5 Signatures: Dispatcher [employer] EDMS Mitchell Salazar PA-C PARadha Schuster cp RN RN [email or web address] Yen Bob 2 Nicole Ontiveros RN RN [email or web address] Roberta Tellez Keri, RN RN kt5 Luan Wilson, DO DO tt7
--- NOTE | 2025-09-03 04:09 | RAD REPORT ---
EXAM: XR Chest, 1 View CLINICAL HISTORY: The patient is 25 years old and is Female; CHEST PAIN TECHNIQUE: Frontal view of the chest. COMPARISON: No relevant prior studies available. FINDINGS: Lungs: Unremarkable. No consolidation. Pleural space: Unremarkable. No pneumothorax. Heart: Unremarkable. Mediastinum: Unremarkable. Normal mediastinal contour. Bones/joints: No acute findings. IMPRESSION: No acute findings in the chest. Electronically signed by: Jonathan Cook MD 09/03/2025 03:33 AM CDT 8 Due to temporary technical issues with the [employer] reporting system, reports are being shaista d by the in-house radiologist without review as a courtesy to ensure prompt reporting the interpreting radiologist is fully responsible for the content of the report. Transcribed Date/Time: 09/03/2025 4:08 AM
[2025-09-03 09:48] VITALS: BP 140/88; TEMP 98.8; O2SAT 99
== END 2025-09-03 02:45 | disposition home or self-care (01) ==
LOC: ER 00:05
DX: R07.9 Chest pain, unspecified (principal); R10.13 Epigastric pain; F41.9 Anxiety disorder, unspecified
CPT/HCPCS: 93005; 85025; 36415; 84703; 84484; 83690; 80053; 71045; 96375; 96374; 99285; J1885